=== PATIENT | female | born 1940 | race Two or more races ===

== ENCOUNTER 2019-11-02 11:48 | Emergency (ER) | payer OTHER ==
[2019-11-02 12:03] VITALS: BP 184/62; PULSE 95; TEMP 98.3; BMI 28.3
[2019-11-02] MEDS ORDERED: MECLIZINE HCL 25 MG TABLET (FP) PO ONE (12:25)
[2019-11-02] MEDS ORDERED: MECLIZINE HCL 25 MG TABLET (FP) ONE (12:36)
--- NOTE | 2019-11-02 12:49 | PDOC ---
History of Present Illness - General Chief Complaint: Ear Problem Stated Complaint: DIZZY/FACIAL PAIN/HEADACHE Time Seen by Provider: 11/02/19 12:07 - History of Present Illness Initial Comments: 11/02/19 12:47 79-year-old female with a past medical history of hypertension and hypothyroidism presents for evaluation of dizziness x3 months she describes vertiginous symptoms of the room spinning around as well as right ear pain. She was treated with a oral antibiotic without relief by her doctor who never actually examined her did a telehealth visit and diagnosed her Past History - Medical History Allergies/Adverse Reactions: Allergies Allergy/AdvReac Type Severity Reaction Status Date / Time aspirin Allergy Mild Hives Verified 11/02/19 11:59 Penicillins Allergy Mild Hives Verified 11/02/19 11:59 Home Medications: Ambulatory Orders Phenazopyridine HCl [Pyridium] 200 mg PO TID #5 tablet 12/01/11 Unobtainable Home Med List 0 dose .ROUTE UTDICT 12/01/11 Meclizine HCl [Antivert -] 12.5 mg PO TID #21 tablet 11/02/19 COPD: No GI Disorders: Yes HTN: Yes Thyroid Disease: Yes - Surgical History Cholecystectomy: Yes - Immunization History Immunization Up to Date: No - Psycho-Social/Smoking History Smoking Status: No Smoking History: Never smoked Number of Cigarettes Smoked Daily: 0 - Substance Abuse Hx (Audit-C & DAST Scrn) How often the patient has a drink containing alcohol: Never Score: In Men: 4 or > Positive; In Women: 3 or > Positive: 0 Screen Result (Pos requires Nsg. Audit-10AR): Negative In the last yr the pt used illegal drug/Rx for NonMed reason: No Score: Yes response is considered Positive: 0 Screen Result (Positive result requires Nsg. DAST-10): Negative Review of Systems - Review of Systems Constitutional: No: Fever HEENTM: Yes: Ear Pain Neurological: Yes: Dizziness *Physical Exam - Vital Signs Last Vital Signs Temp Pulse Resp BP Pulse Ox 98.3 F 95 H 20 184/62 H 100 11/02/19 11:59 11/02/19 11:59 11/02/19 11:59 11/02/19 11:59 11/02/19 11:59 - Physical Exam 11/02/19 12:48 GENERAL: The patient is awake, alert, and fully oriented, in no acute distress. HEAD: Normal with no signs of trauma. EYES: sclera anicteric, conjunctiva clear. ENT: Ears normal tympanic membranes normal oropharynx clear uvula midline NECK: Normal range of motion LUNGS: Breath sounds equal, clear to auscultation bilaterally. No wheezes, and no crackles. HEART: S1 and S2 without murmur, rub or gallop. ABDOMEN: Soft, nontender, normoactive bowel sounds. No guarding, no rebound. No masses. EXTREMITIES: Normal range of motion, no edema. No clubbing or cyanosis. No cords, erythema, or tenderness. NEUROLOGICAL: Cranial nerves II through XII grossly intact. PSYCH: Normal mood, normal affect. SKIN: Warm, Dry, normal turgor, no rashes or lesions noted. ED Treatment Course - Medications Given in the ED: ED Medications Discontinued Medications Generic Name Dose Route Start Last Admin Trade Name Freq PRN Reason Stop Dose Admin Meclizine HCl 50 mg 11/02/19 12:25 11/02/19 12:39 Antivert - PO 11/02/19 12:26 50 mg ONCE ONE Administration Medical Decision Making - Medical Decision Making 11/02/19 12:48 Patient's vertiginous symptoms were relieved with meclizine benign examination will have patient follow-up with ENT Meclizine called in I have reviewed the pathophysiology with the patient. They are in agreement with the treatment plan all questions were answered to their satisfaction. Understanding for follow-up without fail was also conveyed to the patient. Again they are in agreement. Discharge - Discharge Information Problems reviewed: Yes Clinical Impression/Diagnosis: Vertigo Condition: Stable Disposition: HOME - Admission No - Additional Discharge Information Prescriptions: Meclizine HCl [Antivert -] 12.5 mg PO TID #21 tablet - Follow up/Referral Referrals: Bobby Mayo MD [Staff Physician] - - Patient Discharge Instructions Additional Instructions: Please take the meclizine as directed and return to the emergency room should symptoms worsen. Without fail follow-up with ear nose and throat doctor in 1 to 2 days for further evaluation and treatment options. - Post Discharge Activity
[2019-11-02] MEDS ORDERED: MAG HYDROX/AL HYDROX/SIMETH 30 ML UNIT-DOSE CUP PO ONE (13:13)
[2019-11-02] MEDS ORDERED: MAG HYDROX/AL HYDROX/SIMETH 30 ML UNIT-DOSE CUP ONE (13:18)
== END 2019-11-02 13:45 | disposition home or self-care (01) ==
LOC: JERFT 11:48
DX: H81.4 Vertigo of central origin (principal)
CPT/HCPCS: 99283-25

== ENCOUNTER 2019-12-25 04:51 | Day surgery (SDC) | payer OTHER ==
[2019-12-24 20:00] VITALS: BMI 30.1
[~2019-12-25 04:51] MED LIST: LIDOCAINE HCL 1%, 10 MG/ML (20ML VIAL) NR ONE
--- OUTSIDE RECORDS SUMMARY | 2019-12-25 05:23 | XMS ---
:1940 Author Organization [facility] Support Name Relationship Address Phone MARTA NEWBERRY DAUGHTER [address] [place] [address] RE Unavailable Unavailable Unavailable SHUKRI NEWBERRY DAUGHTER [address] [place] [address] SHUKRI NEWBERRY Child [address] [place] [place] [address] dhara shin Unavailable [address] [place] [address] Re-disclosure Warning The records that you are about to access may contain information from federally- assisted alcohol or drug abuse programs. If such information is present, then the following federally mandated warning applies: This information has been disclosed to you from records protected by federal confidentiality rules (42 CFR part 2). The federal rules prohibit you from making any further disclosure of this information unless further disclosure is expressly permitted by the written consent of the person to whom it pertains or as otherwise permitted by 42 CFR part 2. A general authorization for the release of medical or other information is NOT sufficient for this purpose. The Federal rules restrict any use of the information to criminally investigate or prosecute any alcohol or drug abuse patient.The records that you are about to access may contain highly sensitive health information, the redisclosure of which is protected by Article 27-F of the [facility] Public Health law. If you continue you may haveaccess to information: Regarding HIV / AIDS; Provided by facilities licensed or operated by the [facility] Office of Mental Health; or Provided by the [facility] Office for People With Developmental Disabilities. If such information is present, then the following [facility] mandated warning applies: This information has been disclosed to you from confidential records which are protected by state law. State law prohibits you from making any further disclosure of this information without the specific written consent of the person to whom it pertains, or as otherwise permitted by law. Any unauthorized further disclosure in violation of state law may result in a fine or fpc sentence or both. A general authorization for the release of medical or other information is NOT sufficient authorization for further disclosure. Allergies and Adverse Reactions Type Description Substance Reaction Status Data Source(s ) Drug allergy Toprol XL Metoprolol nausea/abd Active eCW3 ([facility]) Drug allergy HydrALAZINE HCl Hydralazine cramps Active eCW3 ( [facility]) Propensity to cocconut No known allergies Unknown Active eCW 3 ([facility] adverse (situation) [facility]) Drug allergy Cipro Ciprofloxacin rash Active eCW3 ([facility]) Drug allergy Penicillin Drug allergy Unknown Active eCW3 ([facility]) Drug allergy Aspirin Aspirin Unknown Active eCW3 ([facility]) Drug allergy Lisinopril Lisinopril abd pain, Active eCW3 ([place] diarrhea abd [facility] pain Care) Propensity to pineapple No known allergies Unknown Active eCW 3 ([place] adverse (situation) [facility] reactions Care) Propensity to cocconut No known allergies Unknown Active eCW 3 ([facility] adverse (situation) [facility] reactions [facility]) Drug allergy Penicillin Drug allergy Unknown Active eCW3 ([facility]) Propensity to pineapple No known allergies Unknown Active eCW 3 ([facility] adverse (situation) [facility] reactions [facility]) Propensity to cocconut No known allergies Unknown Active eCW 3 ([facility] adverse (situation) [facility] reactions [facility]) Drug allergy Penicillin Drug allergy Unknown Active eCW3 ([facility]) Propensity to pineapple No known allergies Unknown Active eCW 3 ([facility] adverse (situation) [facility] reactions Care) Propensity to cocconut No known allergies Unknown Active eCW 3 ([place] adverse (situation) [facility] reactions Care) Drug allergy Penicillin Drug allergy Unknown Active eCW3 ([facility]) Propensity to pineapple No known allergies Unknown Active eCW 3 ([place] adverse (situation) [facility] reactions Care) Propensity to cocconut No known allergies Unknown Active eCW 3 ([place] adverse (situation) [facility] reactions Care) Drug allergy Penicillin Drug allergy Unknown Active eCW3 ([facility]) Propensity to pineapple No known allergies Unknown Active eCW 3 ([place] adverse (situation) [facility]) Propensity to cocconut No known allergies Unknown Active eCW 3 ([place] adverse (situation) [facility] reactions Care) Drug allergy Penicillin Drug allergy Unknown Active eCW3 ([facility]) Propensity to pineapple No known allergies Unknown Active eCW 3 ([place] adverse (situation) [facility]) Propensity to cocconut No known allergies Unknown Active eCW 3 ([facility] adverse (situation) [facility] reactions Care) Drug allergy Penicillin Drug allergy Unknown Active eCW3 ([facility]) Propensity to pineapple No known allergies Unknown Active eCW 3 ([place] adverse (situation) [facility] reactions Care) Propensity to cocconut No known allergies Unknown Active eCW 3 ([place] adverse (situation) [facility] reactions Care) Drug allergy Penicillin Drug allergy Unknown Active eCW3 ([facility]) Propensity to pineapple No known allergies Unknown Active eCW 3 ([place] adverse (situation) [facility] reactions Care) Propensity to cocconut No known allergies Unknown Active eCW 3 ([place] adverse (situation) [facility] reactions Care) Drug allergy Penicillin Drug allergy Unknown Active eCW3 ([facility]) Propensity to pineapple No known allergies Unknown Active eCW 3 ([place] adverse (situation) [facility] reactions Care) Propensity to cocconut No known allergies Unknown Active eCW 3 ([place] adverse (situation) [facility] reactions Care) Drug allergy Penicillin Drug allergy Unknown Active eCW3 ([facility]) Propensity to pineapple No known allergies Unknown Active eCW 3 ([place] adverse (situation) [facility] reactions Care) Propensity to cocconut No known allergies Unknown Active eCW 3 ([place] adverse (situation) [facility] reactions Care) Drug allergy Penicillin Drug allergy Unknown Active eCW3 ([facility]) Propensity to pineapple No known allergies Unknown Active eCW 3 ([place] adverse (situation) [facility] reactions Care) Encounters Encounter Providers Location Date Indications Data Source(s ) (ACO) Medicare ACO [facility] 01/13/2019 eC W3 ([facility] A28 12:00:00 AM [facility] - [facility]) 01/13/2019 12:00:00 AM EDT Outpatient [facility] 11/11/2018 eCW3 ([facility] A28 12:00:00 AM [facility] - [facility]) 11/11/2018 12:00:00 AM EDT Outpatient [facility] 10/07/2018 eCW3 ([facility] 12:00:00 AM [facility] - [facility]) 10/07/2018 12:00:00 AM EDT Outpatient [facility] 10/02/2018 eCW3 ([facility]28 12:00:00 AM [facility] - [facility]) 10/02/2018 12:00:00 AM EDT Outpatient [facility] 09/08/2018 eCW3 ([facility] 12:00:00 AM [facility] - [facility]) 09/08/2018 12:00:00 AM EDT Outpatient [facility] 08/12/2018 eCW3 ([facility] 12:00:00 AM [facility] - [facility]) 08/12/2018 12:00:00 AM EDT Outpatient [facility] 07/29/2018 eCW3 ([facility] 12:00:00 AM [facility] - [facility]) 07/29/2018 12:00:00 AM EDT Outpatient [facility] 07/15/2018 eCW3 ([facility] 12:00:00 AM [facility] - [facility]) 07/15/2018 12:00:00 AM EDT Outpatient [facility] 07/01/2018 eCW3 ([facility]28 12:00:00 AM [facility] - [facility]) 07/01/2018 12:00:00 AM EDT Outpatient [facility] 06/23/2018 eCW3 ([facility] 12:00:00 AM [facility] - [facility]) 06/23/2018 12:00:00 AM EDT Outpatient [facility] 06/16/2018 eCW3 ([facility] 12:00:00 AM [facility] - [facility]) 06/16/2018 12:00:00 AM EDT Immunizations Vaccine Date Status Description Data Source(s) New in 2011. IIV4 01/13/2019 completed eCW3 ([facility] [place] 11:18:00 AM EDT Health Care) MMR 10/07/2018 completed eCW3 ([place] [facility] 11:25:00 AM EDT Health Care) MMR 10/07/2018 completed eCW3 ([place] [facility] 11:25:00 AM EDT Health Care) Tdap 10/02/2018 completed eCW3 ([place] [facility] 01:35:00 PM EDT Health Care) Tdap 10/02/2018 completed eCW3 ([place] [facility] 01:35:00 PM EDT Health Care) pneumococcal 06/23/2018 completed eCW3 ([place] [facility] par[facility] polysaccharide PPV23 01:05:00 PM EDT Heal Care) New in 2011. IIV4 06/23/2018 completed eCW3 ([facility] [place] 01:05:00 PM EDT Health Care) pneumococcal 06/23/2018 completed eCW3 ([place] [facility] par[facility] polysaccharide PPV23 01:05:00 PM EDT Heal Care) New in 2011. IIV4 06/23/2018 completed eCW3 ([facility] [place] 01:05:00 PM EDT Health Care) New in 2011. IIV4 03/11/2017 completed eCW3 ([facility] [place] 11:26:00 AM EST Health Care) IIV3. This vaccine code is 12/09/2015 completed e CW3 ([place] one of two which replace 02:17:00 PM EDT Health Care) CVX 15, influenza, split virus. Pneumococcal conjugate PCV 12/09/2015 completed e CW3 ([place] 13 02:17:00 PM EDT Health Care) New in 2011. IIV4 02/10/2015 completed eCW3 ([facility] [place] 10:16:00 AM EST Health Care) IIV3. This vaccine code is 04/07/2014 completed e CW3 ([place] one of two which replace 09:33:00 AM EST Health Care) CVX 15, influenza, split virus. IIV3. This is one of two 12/19/2012 completed eCW 3 ([place] codes replacing CVX 15, 11:58:50 AM EDT [facility]) which is being retired. IIV3. This vaccine code is 12/20/2011 completed e CW3 ([place] one of two which replace 09:53:37 AM EDT Health Care) CVX 15, influenza, split virus. IIV3. This vaccine code is 01/11/2011 completed e CW3 ([place] one of two which replace 01:31:51 PM EDT [facility] Care) CVX 15, influenza, split virus. IIV3. This is one of two 03/08/2010 completed eCW 3 ([place] codes replacing CVX 15, 09:52:39 AM EST [facility]) which is being retired. Medications Medication Brand Start Product Dose Route Administrative Pharmacy [facility] Indications Reaction Description Data Name Date Form Instructions Instructions Source(s) Azithromyci Azithr 10/27/ active Azithro mycin eCW3 n 250 MG omycin 2020 250 MG ([place] Oral Tablet 250 MG 12:00: [place] [facility] 00 AM Health EDT Care) Clotrimazol UNK .0 active Clotrimaz ole eCW3 e 1 % 2020 {appl 1 % ([place] 12:00: icati [place] 00 AM on} Health EDT Care) Clotrimazol UNK 1.0 active Clotrimaz ole eCW3 e 1 % 2020 {appl 1 % ([place] 12:00: icati [place] 00 AM on} Health EDT Care) Clotrimazol UNK .0 active Clotrimaz ole eCW3 e 1 % 2020 {appl 1 % ([place] 12:00: icati [place] 00 AM on} Health EDT Care) Dextrometho Dextro .0 suspend Dextro methor eCW3 rphan methor 2018 {ml_a ed webb-Guaifen ([facility] Hydrobromid webb-G 12:00: s_nee esin 10- 100 [place] e 2 MG/ML / uaifen 00 AM ded} MG/5ML Hea lt Guaifenesin esin [facility] Care) 20 MG/ML 10-100 Oral MG/5ML Solution Dextrometho rphan-Guaif enesin 10-100 MG/5ML Dextrometho Dextro .0 suspend Dextro methor eCW3 rphan methor 2018 {ml_a ed webb-Guaifen ([facility] Hydrobromid webb-G 12:00: s_nee esin 10- 100 [place] e 2 MG/ML / uaifen 00 AM ded} MG/5ML Hea lth Guaifenesin esin EST Care) 20 MG/ML 10-100 Oral MG/5ML Solution Dextrometho rphan-Guaif enesin 10-100 MG/5ML Dextrometho Dextro 02/17/ 10.0 suspend Dextro methor eCW3 rphan methor 2019 {ml_a ed webb-Guaifen ( dson Hydrobromid webb-G 12:00: s_nee esin 10- 100 [place] e 2 MG/ML / uaifen 00 AM ded} MG/5ML Hea lth Guaifenesin esin EST Care) 20 MG/ML 10-100 Oral MG/5ML Solution Dextrometho rphan-Guaif enesin 10-100 MG/5ML Dextrometho Dextro 02/17/ 10.0 suspend Dextro methor eCW3 rphan methor 2019 {ml_a ed webb-Guaifen ( dson Hydrobromid webb-G 12:00: s_nee esin 10- 100 [place] e 2 MG/ML / uaifen 00 AM ded} MG/5ML Hea lth Guaifenesin esin EST Care) 20 MG/ML 10-100 Oral MG/5ML Solution Dextrometho rphan-Guaif enesin 10-100 MG/5ML Dextrometho Dextro 02/17/ 10.0 active Dextrom ethor eCW3 rphan methor 2019 {ml_a webb-Guaifen ( dson Hydrobromid webb-G 12:00: s_nee esin 10- 100 [place] e 2 MG/ML / uaifen 00 AM ded} MG/5ML Hea lth Guaifenesin esin EST Care) 20 MG/ML 10-100 Oral MG/5ML Solution Dextrometho rphan-Guaif enesin 10-100 MG/5ML Dextrometho Dextro 02/17/ 10.0 suspend Dextro methor eCW3 rphan methor 2019 {ml_a ed webb-Guaifen ([place] [facility] Hydrobromid webb-G 12:00: s_nee esin 10- 100 [place] e 2 MG/ML / uaifen 00 AM ded} MG/5ML Hea lth Guaifenesin esin EST Care) 20 MG/ML 10-100 Oral MG/5ML Solution Dextrometho rphan-Guaif enesin 10-100 MG/5ML Dextrometho Dextro .0 suspend Dextro methor eCW3 rphan methor 2019 {ml_a ed webb-Guaifen ([facility] Hydrobromid webb-G 12:00: s_nee esin 10- 100 [place] e 2 MG/ML / uaifen 00 AM ded} MG/5ML [facility] Guaifenesin esin EST Care) 20 MG/ML 10-100 Oral MG/5ML Solution Dextrometho rphan-Guaif enesin 10-100 MG/5ML Dextrometho Dextro .0 suspend Dextro methor eCW3 rphan methor 2019 {ml_a ed webb-Guaifen ([facility] Hydrobromid webb-G 12:00: s_nee esin 10- 100 [place] e 2 MG/ML / uaifen 00 AM ded} MG/5ML [facility] Guaifenesin esin EST Care) 20 MG/ML 10-100 Oral MG/5ML Solution Dextrometho rphan-Guaif enesin 10-100 MG/5ML Blood Blood 05/07/ active Blood eCW3 Pressure Pressu 2019 Pressure Kit ( [place] Kit - re Kit 12:00: - [place] - 00 AM Health EDT Care) Blood Blood /07/ active Blood eCW3 Pressure Pressu 2019 Pressure Kit ( [place] Kit - re Kit 12:00: - [place] - 00 AM Health EDT Care) Blood Blood 05/07/ active Blood eCW3 Pressure Pressu 2019 Pressure Kit ( [place] Kit - re Kit 12:00: - [place] - 00 AM Health EDT Care) Blood Blood 05/07/ active Blood eCW3 Pressure Pressu 2019 Pressure Kit ( [place] Kit - re Kit 12:00: - [place] - 00 AM Health EDT Care) Clonidine Clonid .0 suspend Clonidin e eCW3 Hydrochlori ine 2018 {tabl ed HCl 0.1 MG ( [place] de 0.1 MG HCl 12:00: et_at [place] Oral Tablet 0.1 MG 00 AM _bedt Heal th Clonidine EST anthony} Care) HCl 0.1 MG Hydrocortis Neomyc 4.0 suspend Neomyc in-Marshal eCW3 one 2017 {drop ed ymyxin-HC ([facility] MG/ML / ymyxin 12:00: s_int 3.5-73926-2 [place] Neomycin -HC 00 AM o_aff Health 3.5 MG/ML / 3.5-10 EST ected Care) Polymyxin B 000-1 _ear} 10817 UNT/ML Otic Solution Neomycin-Po lymyxin-HC 3.5-98909-7 Clonidine Clonid .0 suspend Clonidin e eCW3 Hydrochlori ine 2018 {tabl ed HCl 0.1 MG ( [place] de 0.1 MG HCl 12:00: et_at [place] [facility] Tablet 0.1 MG 00 AM _bedt Heal th Clonidine EST anthony} Care) HCl 0.1 MG Clonidine Clonid .0 suspend Clonidin e eCW3 Hydrochlori ine 2018 {tabl ed HCl 0.1 MG ( [place] de 0.1 MG HCl 12:00: et_at [place] [facility] Tablet 0.1 MG 00 AM _bedt Heal th Clonidine EST anthony} Care) HCl 0.1 MG Hydrocortis Neomyc .0 suspend Neomyc in-Marshal eCW3 one 2017 {drop ed ymyxin-HC ([facility] MG/ML / ymyxin 12:00: s_int 3.5-35655-5 [place] Neomycin -HC 00 AM o_aff Health 3.5 MG/ML / 3.5-10 EST ected Care) Polymyxin B 000-1 _ear} 50993 UNT/ML Otic Solution Neomycin-Po lymyxin-HC 3.5-14224-0 Hydrocortis Neomyc .0 suspend Neomyc in-Marshal eCW3 one 2017 {drop ed ymyxin-HC ([facility] MG/ML / ymyxin 12:00: s_int 3.5-45623-8 [place] Neomycin -HC 00 AM o_aff Health 3.5 MG/ML / 3.5-10 EST ected Care) Polymyxin B 000-1 _ear} 28282 UNT/ML Otic Solution Neomycin-Po lymyxin-HC 3.5-65616-7 Hydrocortis Neomyc .0 suspend Neomyc in-Marshal eCW3 one 2017 {drop ed ymyxin-HC ([facility] MG/ML / ymyxin 12:00: s_int 3.5-72173-3 [place] Neomycin -HC 00 AM o_aff Health 3.5 MG/ML / 3.5-10 EST ected Care) Polymyxin B 000-1 _ear} 07741 UNT/ML Otic Solution Neomycin-Po lymyxin-HC 3.5-93695-3 Hydrocortis Neomyc .0 suspend Neomyc in-Marshal eCW3 one 2017 {drop ed ymyxin-HC ([facility] MG/ML / ymyxin 12:00: s_int 3.5-33236-8 [place] Neomycin -HC 00 AM o_aff Health 3.5 MG/ML / 3.5-10 EST ected Care) Polymyxin B 000-1 _ear} 39206 UNT/ML Otic Solution Neomycin-Po lymyxin-HC 3.5-46969-8 Clonidine Clonid .0 suspend Clonidin e eCW3 Hydrochlori ine 2017 {tabl ed HCl 0.1 MG ( [place] de 0.1 MG HCl 12:00: et_at [place] [facility] Tablet 0.1 MG 00 AM _bedt Heal th Clonidine EST anthony} Care) HCl 0.1 MG Clonidine Clonid .0 suspend Clonidin e eCW3 Hydrochlori ine 2017 {tabl ed HCl 0.1 MG ( [place] de 0.1 MG HCl 12:00: et_at [place] [facility] Tablet 0.1 MG 00 AM _bedt Heal th Clonidine EST anthony} Care) HCl 0.1 MG Clonidine Clonid .0 suspend Clonidin e eCW3 Hydrochlori ine 2017 {tabl ed HCl 0.1 MG ( [place] de 0.1 MG HCl 12:00: et_at [place] [facility] Tablet 0.1 MG 00 AM _bedt Heal th Clonidine EST anthony} Care) HCl 0.1 MG Clonidine Clonid .0 suspend Clonidin e eCW3 Hydrochlori ine 2018 {tabl ed HCl 0.1 MG ( [place] de 0.1 MG HCl 12:00: et_at [place] [facility] Tablet 0.1 MG 00 AM _bedt Heal th Clonidine EST anthony} Care) HCl 0.1 MG Clonidine Clonid .0 suspend Clonidin e eCW3 Hydrochlori ine 2018 {tabl ed HCl 0.1 MG ( [place] de 0.1 MG HCl 12:00: et_at [place] [facility] Tablet 0.1 MG 00 AM _bedt Heal th Clonidine EST anthony} Care) HCl 0.1 MG Clonidine Clonid .0 suspend Clonidin e eCW3 Hydrochlori ine 2018 {tabl ed HCl 0.1 MG ( [place] de 0.1 MG HCl 12:00: et_at [place] [facility] Tablet 0.1 MG 00 AM _bedt Heal th Clonidine EST anthony} Care) HCl 0.1 MG Hydrocortis Neomyc .0 suspend Neomyc in-Marshal eCW3 Marshal 2017 {drop ed ymyxin-HC ([facility] MG/ML / ymyxin 12:00: s_int 3.5-19029-8 [place] Neomycin -HC 00 AM o_aff Health 3.5 MG/ML / 3.5-10 EST ected Care) Polymyxin B 000-1 _ear} 60108 UNT/ML Otic Solution Neomycin-Po lymyxin-HC 3.5-68200-4 Clonidine Clonid .0 suspend Clonidin e eCW3 Hydrochlori ine 2018 {tabl ed HCl 0.1 MG ( [place] de 0.1 MG HCl 12:00: et_at [place] [facility] Tablet 0.1 MG 00 AM _bedt Heal th Clonidine EST anthony} Care) HCl 0.1 MG Hydrocortis Neomyc .0 suspend Neomyc in-Marshal eCW3 Marshal 2017 {drop ed ymyxin-HC ([facility] MG/ML / ymyxin 12:00: s_int 3.5-50241-5 [place] Neomycin -HC 00 AM o_aff Health 3.5 MG/ML / 3.5-10 EST ected Care) Polymyxin B 000-1 _ear} 77503 UNT/ML Otic Solution Neomycin-Po lymyxin-HC 3.5-14522-4 Hydrocortis Neomyc 4.0 suspend Neomyc in-Marshal eCW3 one 2018 {drop ed ymyxin-HC ([facility] MG/ML / ymyxin 12:00: s_int 3.5-11971-4 [place] Neomycin -HC 00 AM o_aff Health 3.5 MG/ML / 3.5-10 EST ected Care) Polymyxin B 000-1 _ear} 37815 UNT/ML Otic Solution Neomycin-Po lymyxin-HC 3.5-37559-5 Hydrocortis Neomyc .0 suspend Neomyc in-Marshal eCW3 one 2017 {drop ed ymyxin-HC ([facility] MG/ML / ymyxin 12:00: s_int 3.5-72639-1 [place] Neomycin -HC 00 AM o_aff Health 3.5 MG/ML / 3.5-10 EST ected Care) Polymyxin B 000-1 _ear} 42660 UNT/ML Otic Solution Neomycin-Po lymyxin-HC 3.5-71487-1 Hydrocortis Neomyc .0 suspend Neomyc in-Marshal eCW3 one 2017 {drop ed ymyxin-HC ([facility] MG/ML / ymyxin 12:00: s_int 3.5-16637-3 [place] Neomycin -HC 00 AM o_aff Health 3.5 MG/ML / 3.5-10 EST ected Care) Polymyxin B 000-1 _ear} 62516 UNT/ML Otic Solution Neomycin-Po lymyxin-HC 3.5-03179-9 Clonidine Clonid .0 suspend Clonidin e eCW3 Hydrochlori ine 2018 {tabl ed HCl 0.1 MG ( [place] de 0.1 MG HCl 12:00: et_at [place] Oral Tablet 0.1 MG 00 AM _bedt Heal th Clonidine EST anthony} Care) HCl 0.1 MG Hydrocortis Neomyc .0 suspend Neomyc in-Marshal eCW3 one in2017 {drop ed ymyxin-HC ([facility] MG/ML / ymyxin 12:00: s_int 3.5-99390-0 [place] Neomycin -HC 00 AM o_aff Health 3.5 MG/ML / 3.5-10 EST ected Care) Polymyxin B 000-1 _ear} 98160 UNT/ML Otic Solution Neomycin-Po lymyxin-HC 3.5-87677-4 Benadryl [facility] .0 suspend Benadryl eC W3 12.5 MG/5ML 2017 {ml_a ed 12.5 MG/5ML ([place] 12:00: s_nee [place] 00 AM ded} Health EDT Care) Benadryl UNK .0 suspend Benadryl eC W3 12.5 MG/5ML 2016 {ml_a ed 12.5 MG/5ML ([place] 12:00: s_nee [place] 00 AM ded} Health EDT Care) Benadryl [facility] .0 suspend Benadryl eC W3 12.5 MG/5ML 2016 {ml_a ed 12.5 MG/5ML ([place] 12:00: s_nee [place] 00 AM ded} Health EDT Care) Benadryl [facility] .0 suspend Benadryl eC W3 12.5 MG/5ML 2016 {ml_a ed 12.5 MG/5ML ([place] 12:00: s_nee [place] 00 AM ded} Health EDT Care) Benadryl [facility] .0 suspend Benadryl eC W3 12.5 MG/5ML 2016 {ml_a ed 12.5 MG/5ML ([place] 12:00: s_nee [place] 00 AM ded} Health EDT Care) Benadryl K .0 suspend Benadryl eC W3 12.5 MG/5ML 2016 {ml_a ed 12.5 MG/5ML ([place] 12:00: s_nee [place] 00 AM ded} Health EDT Care) Benadryl [facility] .0 suspend Benadryl eC W3 12.5 MG/5ML 2016 {ml_a ed 12.5 MG/5ML ([place] 12:00: s_nee [place] 00 AM ded} Health EDT Care) Benadryl [facility] .0 suspend Benadryl eC W3 12.5 MG/5ML 2017 {ml_a ed 12.5 MG/5ML ([place] 12:00: s_nee [place] 00 AM ded} Health EDT Care) Benadryl UNK .0 suspend Benadryl eC W3 12.5 MG/5ML 2016 {ml_a ed 12.5 MG/5ML ([place] 12:00: s_nee [place] 00 AM ded} Health EDT Care) Benadryl UNK .0 suspend Benadryl eC W3 12.5 MG/5ML 2016 {ml_a ed 12.5 MG/5ML ([place] 12:00: s_nee [place] 00 AM ded} Health EDT Care) Benadryl UNK .0 suspend Benadryl eC W3 12.5 MG/5ML 2016 {ml_a ed 12.5 MG/5ML ([place] 12:00: s_nee [place] 00 AM ded} Health EDT Care) Estradiol Estrac 09/14/ suspend Estrace 0.1 eCW3 0.1 MG/ML e 0.1 2013 ed MG/GM ([place] Vaginal MG/GM 12:00: [place] Cream 00 AM Health [Estrace] EDT Care) Estrace 0.1 MG/GM Estradiol Estrac 09/14/ suspend Estrace 0.1 eCW3 0.1 MG/ML e 0.1 2013 ed MG/GM ([place] [facility]ag[facility] MG/GM 12:00: [place] Cream 00 AM Health [Estrace] EDT Care) Estrace 0.1 MG/GM Estradiol Estrac 09/14/ suspend Estrace 0.1 eCW3 0.1 MG/ML e 0.1 2013 ed MG/GM ([place] [facility]ag[facility] MG/GM 12:00: [place] Cream 00 AM Health [Estrace] EDT Care) Estrace 0.1 MG/GM Estradiol Estrac 09/14/ suspend Estrace 0.1 eCW3 0.1 MG/ML e 0.1 2013 ed MG/GM ([place] [facility]ag[facility] MG/GM 12:00: [place] Cream 00 AM Health [Estrace] EDT Care) Estrace 0.1 MG/GM Estradiol Estrac 09/14/ suspend Estrace 0.1 eCW3 0.1 MG/ML e 0.1 2013 ed MG/GM ([place] [facility]ag[facility] MG/GM 12:00: [place] Cream 00 AM Health [Estrace] EDT Care) Estrace 0.1 MG/GM Estradiol Estrac 09/14/ suspend Estrace 0.1 eCW3 0.1 MG/ML e 0.1 2013 ed MG/GM ([place] [facility]ag[facility] MG/GM 12:00: [place] Cream 00 AM Health [Estrace] EDT Care) Estrace 0.1 MG/GM Estradiol Estrac 09/14/ suspend Estrace 0.1 eCW3 0.1 MG/ML e 0.1 2013 ed MG/GM ([place] [facility]ag[facility] MG/GM 12:00: [place] Cream 00 AM Health [Estrace] EDT Care) Estrace 0.1 MG/GM Estradiol Estrac 09/14/ suspend Estrace 0.1 eCW3 0.1 MG/ML e 0.1 2013 ed MG/GM ([place] [facility]ag[facility] MG/GM 12:00: [place] Cream 00 AM Health [Estrace] EDT Care) Estrace 0.1 MG/GM Estradiol Estrac 09/14/ suspend Estrace 0.1 eCW3 0.1 MG/ML e 0.1 2013 ed MG/GM ([place] [facility]ag[facility] MG/GM 12:00: [place] Cream 00 AM Health [Estrace] EDT Care) Estrace 0.1 MG/GM Estradiol Estrac 09/14/ suspend Estrace 0.1 eCW3 0.1 MG/ML e 0.1 2013 ed MG/GM ([place] [facility]ag[facility] MG/GM 12:00: [place] Cream 00 AM Health [Estrace] EDT Care) Estrace 0.1 MG/GM Estradiol Estrac 09/14/ suspend Estrace 0.1 eCW3 0.1 MG/ML e 0.1 2013 ed MG/GM ([place] [facility]ag[facility] MG/GM 12:00: [place] Cream 00 AM Health [Estrace] EDT Care) Estrace 0.1 MG/GM Hydrochloro Hydroc 1.0 active Hydrochlo rot eCW3 thiazide 50 hlorot {tabl hiazide 50 ([place] MG Oral hiazid et_in mg [place] Tablet e 50 _the_ Health Hydrochloro mg morni Care) thiazide 50 ng} mg Hydrochloro Hydroc 1.0 active Hydrochlo rot eCW3 thiazide 50 hlorot {tabl hiazide 50 ([place] MG Oral hiazid et_in mg [place] Tablet e 50 _the_ Health Hydrochloro mg morni Care) thiazide 50 ng} mg Blood Blood active Blood eCW3 Pressure Pressu Pressure Kit ( [facility]) Prednisone Predni 1.0 suspend PredniSON E eCW3 20 MG Oral SONE {tabl ed 20 MG ([place] Tablet 20 MG et} [place] [facility] 20 MG Care) Lisinopril Lisino 1.0 suspend Lisinopri l eCW3 20 MG Oral pril {tabl ed 20 MG ([place] Tablet 20 MG et} [facility] Care) Blood Blood active Blood eCW3 Pressure Pressu Pressure Kit ( [facility]) Levothyroxi Levoth active Levothyro rhonda eCW3 ne Sodium yroxin e Sodium 88 ( [place] 0.088 MG e MCG [place] Oral Tablet [facility] Levothyroxi 88 MCG Care) ne Sodium 88 MCG Esomeprazol Nexium 1.0 active Nexium 20 MG eCW3 e 20 MG 20 MG {caps ([place] Delayed ule} [facility] Oral Care) Capsule [Nexium] Nexium 20 MG atorvastati Atorva 1.0 suspend Atorvast atin eCW3 n 20 MG statin {tabl ed Calcium 20 ([facility] [place] Oral Tablet Calciu et} MG [place] Atorvastati 20 Health n Calcium MG Care) 20 MG Blood Blood active Blood eCW3 Pressure Pressu Pressure Kit ( [facility]) Hydrochloro Hydroc 1.0 active Hydrochlo rot eCW3 thiazide 50 hlorot {tabl hiazide 50 ([place] MG Oral hiazid et_in mg [facility] Tablet e 50 _the_ Health Hydrochloro mg morni Care) thiazide 50 ng} mg Levothyroxi Levoth active Levothyro rhonda eCW3 ne Sodium yroxin e Sodium 50 ( [place] 0.05 MG e MCG [facility] Oral Tablet [facility] Levothyroxi 50 MCG Care) ne Sodium 50 MCG Esomeprazol Nexium 1.0 active Nexium 20 MG eCW3 e 20 MG 20 MG {caps ([place] Delayed ule} [facility] Care) Capsule [Nexium] Nexium 20 MG Esomeprazol Nexium 1.0 active Nexium 20 MG eCW3 e 20 MG 20 MG {caps ([place] Delayed ule} [facility] Oral Care) Capsule [Nexium] Nexium 20 MG Lisinopril Lisino 1.0 suspend Lisinopri l eCW3 20 MG Oral pril {tabl ed 20 MG ([place] Tablet 20 MG et} [facility]) Levothyroxi Levoth active Levothyro rhonda eCW3 ne Sodium yroxin e Sodium 50 ( [place] 0.05 MG e MCG [facility] Oral Tablet Sodium [facility] Levothyroxi 50 MCG Care) ne Sodium 50 MCG Levothyroxi Levoth active Levothyro rhonda eCW3 ne Sodium yroxin e Sodium 100 ([place] 0.1 MG Oral e MCG [facility] Tablet Sodium [facility] Levothyroxi 100 Care) ne Sodium MCG 100 MCG Blood Blood active Blood eCW3 Pressure Pressu Pressure Kit ( [place] Kit - re Kit - [facility]) atorvastati Atorva 1.0 suspend Atorvast atin eCW3 n 20 MG statin {tabl ed Calcium 20 ([place] Oral Tablet Calciu et} MG [place] Atorvastati m 20 Health n Calcium MG Care) 20 MG Esomeprazol Nexium 1.0 active Nexium 20 MG eCW3 e 20 MG 20 MG {caps ([place] Delayed ule} [facility] Health Oral Care) Capsule [Nexium] Nexium 20 MG Hydrochloro Hydroc 1.0 active Hydrochlo rot eCW3 thiazide 50 hlorot {tabl hiazide 50 ([place] MG Oral hiazid et_in mg [facility] Tablet e 50 _the_ Health Hydrochloro mg morni Care) thiazide 50 ng} mg Esomeprazol Nexium 1.0 active Nexium 20 MG eCW3 e 20 MG 20 MG {caps ([place] Delayed ule} [facility] Oral Care) Capsule [Nexium] Nexium 20 MG Hydrochloro Hydroc 1.0 active Hydrochlo rot eCW3 thiazide 50 hlorot {tabl hiazide 50 ([place] MG Oral hiazid et_in mg [facility] Tablet e 50 _the_ Health Hydrochloro mg morni Care) thiazide 50 ng} mg Prednisone Predni 1.0 suspend PredniSON E eCW3 20 MG Oral SONE {tabl ed 20 MG ([place] Tablet 20 MG et} [facility] 20 MG Care) Amlodipine Norvas 1.0 active Norvasc 5 MG eCW3 5 MG Oral c 5 MG {tabl ([place] Tablet et} [facility] [Norvasc] Health Norvasc 5 Care) MG atorvastati Atorva 1.0 suspend Atorvast atin eCW3 n 20 MG statin {tabl ed Calcium 20 ([place] Oral Tablet Calciu et} MG [place] Atorvastati 20 Health n Calcium MG Care) 20 MG atorvastati Atorva 1.0 suspend Atorvast atin eCW3 n 20 MG statin {tabl ed Calcium 20 ([place] Oral Tablet Calciu et} MG [place] Atorvastati 20 Health n Calcium MG Care) 20 MG Levothyroxi Levoth active Levothyro rhonda eCW3 ne Sodium yroxin e Sodium 100 ([place] 0.1 MG Oral e MCG [facility] Tablet [facility] Levothyroxi 100 Care) ne Sodium MCG 100 MCG Prednisone Predni 1.0 suspend PredniSON E eCW3 20 MG Oral SONE {tabl ed 20 MG ([place] Tablet 20 MG et} [facility] 20 MG Care) Prednisone Predni 1.0 suspend PredniSON E eCW3 20 MG Oral SONE {tabl ed 20 MG ([place] Tablet 20 MG et} [facility] 20 MG Care) Hydrochloro Hydroc 1.0 active Hydrochlo rot eCW3 thiazide 50 hlorot {tabl hiazide 50 ([place] MG Oral hiazid et_in mg [facility] Tablet e 50 _the_ Health Hydrochloro mg morni Care) thiazide 50 ng} mg atorvastati Atorva 1.0 suspend Atorvast atin eCW3 n 20 MG statin {tabl ed Calcium 20 ([facility] [place] Oral Tablet Calciu et} MG [place] Atorvastati 20 [facility] n Calcium MG Care) 20 MG atorvastati Atorva 1.0 suspend Atorvast atin eCW3 n 20 MG statin {tabl ed Calcium 20 ([place] Oral Tablet Calciu et} MG [place] Atorvastati 20 Health n Calcium MG Care) 20 MG Levothyroxi Levoth active Levothyro rhonda eCW3 ne Sodium yroxin e Sodium 50 ( [place] 0.05 MG e MCG [facility] Oral Tablet [facility] Levothyroxi 50 MCG Care) ne Sodium 50 MCG Lisinopril Lisino 1.0 suspend Lisinopri l eCW3 20 MG Oral pril {tabl ed 20 MG ([place] Tablet 20 MG et} [facility]) Lisinopril Lisino 1.0 suspend Lisinopri l eCW3 20 MG Oral pril {tabl ed 20 MG ([place] Tablet 20 MG et} [facility]) Amlodipine Norvas 1.0 active Norvasc 5 MG eCW3 5 MG Oral c 5 MG {tabl ([place] Tablet et} [facility] 5 [facility]) MG atorvastati Atorva 1.0 suspend Atorvast atin eCW3 n 20 MG statin {tabl ed Calcium 20 (Hu d[place] Oral Tablet Calciu et} MG [place] Atorvastati 20 [facility] n Calcium MG [facility]) 20 MG atorvastati Atorva 1.0 suspend Atorvast atin eCW3 n 20 MG statin {tabl ed Calcium 20 ([place] d[place] Oral Tablet Calciu et} MG [place] Atorvastati [address] n Calcium MG [facility]) 20 MG Claritin 5 Clarit 10.0 active Claritin 5 eCW3 MG/5ML in 5 {ml} MG/5ML ([place] MG/5ML [facility]) Hydrochloro Hydroc 1.0 active Hydrochlo rot eCW3 thiazide 50 hlorot {tabl hiazide 50 ([place] MG Oral hiazid et_in mg [facility] Tablet e 50 _the_ Health Hydrochloro mg morni Care) thiazide 50 ng} mg Prednisone Predni 1.0 suspend PredniSON E eCW3 20 MG Oral SONE {tabl ed 20 MG ([place] Tablet 20 MG et} [place] [facility] 20 MG Care) Prednisone Predni 1.0 suspend PredniSON E eCW3 20 MG Oral SONE {tabl ed 20 MG ([place] Tablet 20 MG et} [place] [facility] 20 MG Care) Amlodipine Norvas 1.0 active Norvasc 5 MG eCW3 5 MG Oral c 5 MG {tabl ([place] Tablet et} [place] [facility] MG Hydrochloro Hydroc 1.0 active Hydrochlo rot eCW3 thiazide 50 hlorot {tabl hiazide 50 ([place] MG Oral hiazid et_in mg [facility] Tablet e 50 _the_ Health Hydrochloro mg morni Care) thiazide 50 ng} mg Claritin 5 Clarit 10.0 active Claritin 5 eCW3 MG/5ML in 5 {ml} MG/5ML ([place] MG/5ML [facility]) Amlodipine Norvas 1.0 active Norvasc 5 MG eCW3 5 MG Oral c 5 MG {tabl ([place] Tablet et} [place] [[address]) MG atorvastati Atorva 1.0 suspend Atorvast atin eCW3 n 20 MG statin {tabl ed Calcium 20 (Hu d[place] Oral Tablet Calciu et} MG [place] Atorvastati 20 Health n Calcium Care) 20 MG Claritin 5 Clarit 10.0 active Claritin 5 eCW3 MG/5ML in 5 {ml} MG/5ML ([place] MG/5ML [facility]) Levothyroxi Levoth active Levothyro rhonda eCW3 ne Sodium yroxin e Sodium 100 ([place] 0.1 MG Oral e MCG [place] Tablet [facility] Levothyroxi 100 Care) ne Sodium MCG 100 MCG Amlodipine Norvas 1.0 active Norvasc 5 MG eCW3 5 MG Oral c 5 MG {tabl ([place] Tablet et} [facility] 5 [facility]) MG Hydrochloro Hydroc 1.0 active Hydrochlo rot eCW3 thiazide 50 hlorot {tabl hiazide 50 ([place] MG Oral hiazid et_in mg [facility] Tablet e 50 _the_ Health Hydrochloro mg morni Care) thiazide 50 ng} mg Hydrochloro Hydroc 1.0 active Hydrochlo rot eCW3 thiazide 50 hlorot {tabl hiazide 50 ([place] MG Oral hiazid et_in mg [facility] Tablet e 50 _the_ Health Hydrochloro mg morni Care) thiazide 50 ng} mg Blood Blood active Blood eCW3 Pressure Pressu Pressure Kit ( [place] Kit - re Kit - [facility]) Levothyroxi Levoth active Levothyro rhonda eCW3 ne Sodium yroxin e Sodium 88 ( [place] 0.088 MG e MCG [facility] Oral Tablet [facility] Levothyroxi 88 MCG Care) ne Sodium 88 MCG Claritin 5 Clarit 10.0 active Claritin 5 eCW3 MG/5ML in 5 {ml} MG/5ML ([place] MG/5ML [place] [facility]) atorvastati Atorva 1.0 suspend Atorvast atin eCW3 n 20 MG statin {tabl ed Calcium 20 ([place] Oral Tablet Calciu et} MG [place] Atorvastati m 20 Health n Calcium MG Care) 20 MG Claritin 5 Clarit 10.0 active Claritin 5 eCW3 MG/5ML in 5 {ml} MG/5ML ([place] MG/5ML [facility]) Esomeprazol Nexium 1.0 active Nexium 20 MG eCW3 e 20 MG 20 MG {caps ([place] Delayed ule} [facility]) Capsule [Nexium] Nexium 20 MG Hydrochloro Hydroc 1.0 active Hydrochlo rot eCW3 thiazide 50 hlorot {tabl hiazide 50 ([place] MG Oral hiazid et_in mg [facility] Tablet e 50 _the_ Health Hydrochloro mg morni Care) thiazide 50 ng} mg Levothyroxi Levoth active Levothyro rhonda eCW3 ne Sodium yroxin e Sodium 88 ( [place] 0.088 MG e MCG [facility] Tablet [facility] Levothyroxi 88 MCG Care) ne Sodium 88 MCG Claritin 5 Clarit 10.0 active Claritin 5 eCW3 MG/5ML in 5 {ml} MG/5ML ([place] MG/5ML [place] [facility]) Prednisone Predni 1.0 suspend PredniSON E eCW3 20 MG Oral SONE {tabl ed 20 MG ([place] Tablet 20 MG et} [facility] 20 MG Care) Amlodipine Norvas 1.0 active Norvasc 5 MG eCW3 5 MG Oral c 5 MG {tabl ([place] Tablet et} [facility] [Norvasc] Health Norvasc 5 Care) MG Claritin 5 Clarit 10.0 active Claritin 5 eCW3 MG/5ML in 5 {ml} MG/5ML ([place] MG/5ML [facility]) Esomeprazol Nexium 1.0 active Nexium 20 MG eCW3 e 20 MG 20 MG {caps ([place] Delayed ule} [facility]) Capsule [Nexium] Nexium 20 MG Esomeprazol Nexium 1.0 active Nexium 20 MG eCW3 e 20 MG 20 MG {caps ([place] Delayed ule} [facility]) Capsule [Nexium] Nexium 20 MG Levothyroxi Levoth active Levothyro rhonda eCW3 ne Sodium yroxin e Sodium 50 ( [place] 0.05 MG e MCG [facility] Oral Tablet [facility] Levothyroxi 50 MCG Care) ne Sodium 50 MCG Claritin 5 Clarit 10.0 active Claritin 5 eCW3 MG/5ML in 5 {ml} MG/5ML ([place] MG/5ML [place] [facility]) Blood Blood active Blood eCW3 Pressure Pressu Pressure Kit ( [place] Kit - re Kit - [facility]) Esomeprazol Nexium 1.0 active Nexium 20 MG eCW3 e 20 MG 20 MG {caps ([place] Delayed ule} [facility]) Capsule [Nexium] Nexium 20 MG Claritin 5 Clarit 10.0 active Claritin 5 eCW3 MG/5ML in 5 {ml} MG/5ML ([place] MG/5ML [facility]) Amlodipine Norvas 1.0 active Norvasc 5 MG eCW3 5 MG Oral c 5 MG {tabl ([place] Tablet et} [facility] 5 [facility]) MG Amlodipine Norvas 1.0 active Norvasc 5 MG eCW3 5 MG Oral c 5 MG {tabl ([place] [facility]} [facility] MG Prednisone Predni 1.0 suspend PredniSON E eCW3 20 MG Oral SONE {tabl ed 20 MG ([place] Tablet 20 MG et} [place] [facility] 20 MG Care) Claritin 5 Clarit 10.0 active Claritin 5 eCW3 MG/5ML in 5 {ml} MG/5ML ([place] MG/5ML [place] [facility]) Amlodipine Norvas 1.0 active Norvasc 5 MG eCW3 5 MG Oral c 5 MG {tabl ([place] Tablet et} [place] [facility] 5 [facility]) MG Claritin 5 Clarit 10.0 active Claritin 5 eCW3 MG/5ML in 5 {ml} MG/5ML ([place] MG/5ML [facility]) Prednisone Predni 1.0 suspend PredniSON E eCW3 20 MG Oral SONE {tabl ed 20 MG ([place] Tablet 20 MG et} [facility] 20 MG Care) Esomeprazol Nexium 1.0 active Nexium 20 MG eCW3 e 20 MG 20 MG {caps ([place] Delayed ule} [facility]) Capsule [Nexium] Nexium 20 MG Amlodipine Norvas 1.0 active Norvasc 5 MG eCW3 5 MG Oral c 5 MG {tabl ([place] Tablet et} [facility] [Norvasc] [facility] Norvasc 5 Care) MG atorvastati Atorva 1.0 suspend Atorvast atin eCW3 n 20 MG statin {tabl ed Calcium 20 ([facility] d[place] Oral Tablet Calciu et} MG [place] Atorvastati m 20 Health n Calcium MG Care) 20 MG Blood Blood active Blood eCW3 Pressure Pressu Pressure Kit ( [place] Kit - re Kit - [facility]) Prednisone Predni 1.0 suspend PredniSON E eCW3 20 MG Oral SONE {tabl ed 20 MG ([place] Tablet 20 MG et} [facility] 20 MG Care) Esomeprazol Nexium 1.0 active Nexium 20 MG eCW3 e 20 MG 20 MG {caps ([place] Delayed ule} [facility]) Capsule [Nexium] Nexium 20 MG Levothyroxi Levoth active Levothyro rhonda eCW3 ne Sodium yroxin e Sodium 100 ([place] 0.1 MG Oral e MCG [facility] Tablet [facility] Levothyroxi 100 Care) ne Sodium MCG 100 MCG Prednisone Predni 1.0 suspend PredniSON E eCW3 20 MG Oral SONE {tabl ed 20 MG ([place] Tablet 20 MG et} [facility] 20 MG Care) Amlodipine Norvas 1.0 active Norvasc 5 MG eCW3 5 MG Oral c 5 MG {tabl ([place] Tablet et} [facility] [Norvasc] [facility] Norvasc 5 Care) MG Insurance Providers Payer name Policy type Policy ID Covered Covered alliance party's Policy P janette / Coverage alliance party ID relationship to Peña Inf ormation type peña MEDICARE [id number] MEDICAID [id number] MEDICARE [id number] A Problems, Conditions, and Diagnoses Code Display Name Description Problem Type Effective Data Dates Source(s) Z78.9 Patient has Patient has Problem 01/13/2019 eCW3 ([place] [facility] proxy healthcare proxy 12:00:00 AM [facility] EDT Care) 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 Problem 10/27/2018 eCW3 ([place] kidney kidney 12:00:00 AM [place] [facility] EDT Care) 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 Problem 10/27/2018 eCW3 ([place] kidney kidney 12:00:00 AM [place] [facility] EDT Care) E78.5 Hyperlipidemia, Hyperlipidemia, Problem 06/23/2018 eCW3 ([place] unspecified unspecified 12:00:00 AM [facility] hyperlipidemia type hyperlipidemia type EDT Care) E78.5 Hyperlipidemia, Hyperlipidemia, Problem 06/23/2018 eCW3 ([place] unspecified unspecified 12:00:00 AM [facility] hyperlipidemia type hyperlipidemia type EDT Care) N18.3 Chronic kidney Chronic kidney Problem 06/19/2018 eCW3 ( [place] disease, stage 3 disease, stage 3 12:00:00 AM [facility] EDT Care) N18.3 Chronic kidney Chronic kidney Problem 06/19/2018 eCW3 ( [place] disease, stage 3 disease, stage 3 12:00:00 AM [facility] EDT Care) E03.9 Hypothyroid Hypothyroid Problem 02/07/2018 eCW3 ([place] 12:00:00 AM [place] [facility] EST Care) E03.9 Hypothyroid Hypothyroid Problem 02/07/2018 eCW3 ([place] 12:00:00 AM [place] [facility] EST Care) J30.2 Seasonal allergies Seasonal allergies Problem 8 eCW3 ([place] 12:00:00 AM [place] [facility] EDT Care) F41.8 Anxiety about Anxiety about Problem 09/03/2017 eCW3 ([facility] 12:00:00 AM [place] [facility] EDT Care) K29.00 Other acute Other acute Problem 04/11/2017 eCW3 ([place] gastritis without gastritis without 12:00:00 AM [facility] hemorrhage hemorrhage EST Care) M54.32 Sciatica of left Sciatica of left Problem 03/07/2017 eC W3 ([place] side side 12:00:00 AM [facility] EST Care) H26.8 Other cataract of Other cataract of Problem 03/07/2017 eCW3 ([place] both eyes both eyes 12:00:00 AM [facility] EST Care) G44.209 Acute non Acute non Problem 03/07/2017 eCW3 ([place] intractable intractable 12:00:00 AM [facility] tension-type tension-type EST Care) headache headache R20.0 Left leg numbness Left leg numbness Problem 03/07/2017 eCW3 ([place] 12:00:00 AM [facility] EST Care) H26.8 Other cataract of Other cataract of Problem 03/07/2017 eCW3 ([place] both eyes both eyes 12:00:00 AM [facility] EST Care) M54.32 Sciatica of left Sciatica of left Problem 03/07/2017 eC W3 ([place] side side 12:00:00 AM [facility] EST Care) I10 Uncontrolled Uncontrolled Problem 03/04/2017 eCW3 ([place] hypertension hypertension 12:00:00 AM [facility] EST Care) I10 Essential Essential (primary) Problem 03/04/2017 eCW3 ([place] hypertension hypertension 12:00:00 AM [facility] EST Care) I10 Essential Essential (primary) Problem 03/04/2017 eCW3 ([place] hypertension hypertension 12:00:00 AM [facility] EST Care) I10 Uncontrolled Uncontrolled Problem 03/04/2017 eCW3 ([place] hypertension hypertension 12:00:00 AM [facility] EST Care) K21.0 Gastro-esophageal Gastro-esophageal Problem 12/10/2016 eCW3 ([place] reflux disease with reflux disease with 12:00:0 0 AM [facility] esophagitis esophagitis EDT Care) K21.0 Gastro-esophageal Gastro-esophageal Problem 12/10/2016 eCW3 ([place] reflux disease with reflux disease with 12:00:0 0 AM [facility] esophagitis esophagitis EDT Care) G89.29 Other chronic pain Other chronic pain Problem 7 eCW3 ([place] 12:00:00 AM [facility] EDT Care) G89.29 Other chronic pain Other chronic pain Problem 7 eCW3 ([place] 12:00:00 AM [facility] EDT Care) R73.09 Prediabetes Prediabetes Problem 12/09/2015 eCW3 ([place] 12:00:00 [facility]) R73.09 Prediabetes Prediabetes Problem 12/09/2015 eCW3 ([place] 12:00:00 [facility]) Social History Code Duration Value Status Description Data Source(s ) Smoking 10/28/2019 12:00:00 Never Smoker completed Never Smoker e CW3 ([facility]) Smoking 08/11/2019 12:00:00 Never Smoker completed Never Smoker e CW3 ([facility]) Smoking 08/11/2019 12:00:00 Never Smoker completed Never Smoker e CW3 ([facility]) Smoking 08/11/2019 12:00:00 Never Smoker completed Never Smoker e CW3 ([facility]) Smoking 06/25/2019 12:00:00 Never Smoker completed Never Smoker e CW3 ([facility]) Smoking 06/25/2019 12:00:00 Never Smoker completed Never Smoker e CW3 ([facility]) Smoking 06/22/2019 12:00:00 Never Smoker completed Never Smoker e CW3 ([facility]) Smoking 02/17/2019 12:00:00 Never Smoker completed Never Smoker e CW3 ([facility]) Smoking 01/14/2019 12:00:00 Never Smoker completed Never Smoker e CW3 ([facility]) Smoking 11/11/2018 12:00:00 Never Smoker completed Never Smoker e CW3 ([facility]) Smoking 11/11/2018 12:00:00 Never Smoker completed Never Smoker e CW3 ([facility]) Never Smoker completed Never Smoker eCW3 ([facility]) Never Smoker completed Never Smoker eCW3 ([facility]) Never Smoker completed Never Smoker eCW3 ([facility]) Never Smoker completed Never Smoker eCW3 ([facility]) Never Smoker completed Never Smoker eCW3 ([facility]) Never Smoker completed Never Smoker eCW3 ([facility]) Never Smoker completed Never Smoker eCW3 ([facility] [place] [facility]) Never Smoker completed Never Smoker eCW3 ([facility] [place] [facility]) Never Smoker completed Never Smoker eCW3 ([facility] [place] [facility]) Never Smoker completed Never Smoker eCW3 ([facility] [place] [facility]) Never Smoker completed Never Smoker eCW3 ([facility] [place] [facility]) Vital Signs ID Date Data Source UNK Name Value Range Interpretation Code Description Data Source(s) Diastolic blood 70 mm[Hg] 70 mm[Hg] eCW3 ([facility]) Systolic blood 138 mm[Hg] 138 mm[Hg] eCW3 ([facility]) Body temperature 97.7 [degF] 97.7 [degF] eCW3 ( [facility]) Body mass index 31.09 kg/m2 31.09 kg/m2 eCW3 ([facility] (BMI) [Ratio] [facility]) Body weight 170 [lb_av] 170 [lb_av] eCW3 ([facility]) Body height 62 [in_i] 62 [in_i] eCW3 ([facility]) Diastolic blood 67 mm[Hg] 67 mm[Hg] eCW3 ([facility]) Systolic blood 169 mm[Hg] 169 mm[Hg] eCW3 ([facility]) Body temperature 98.2 [degF] 98.2 [degF] eCW3 ( [facility]) Body mass index 31.64 kg/m2 31.64 kg/m2 eCW3 ([facility] el[facility] (BMI) [Ratio] [facility]) Body weight 173 [lb_av] 173 [lb_av] eCW3 ([facility]) Body height 62 [in_i] 62 [in_i] eCW3 ([facility]) Diastolic blood 80 mm[Hg] 80 mm[Hg] eCW3 ([facility]) Systolic blood 165 mm[Hg] 165 mm[Hg] eCW3 ([facility]) Body temperature 98.1 [degF] 98.1 [degF] eCW3 ( [facility]) Body mass index 32.19 kg/m2 32.19 kg/m2 eCW3 ([facility] ud[facility] (BMI) [Ratio] [facility]) Body weight 176 [lb_av] 176 [lb_av] eCW3 ([facility]) Body height 62 [in_i] 62 [in_i] eCW3 ([facility]) Diastolic blood 73 mm[Hg] 73 mm[Hg] eCW3 ([facility]) Systolic blood 182 mm[Hg] 182 mm[Hg] eCW3 ([facility] on [facility]) Body temperature 98.0 [degF] 98.0 [degF] eCW3 ( [facility]) Body mass index 32.30 kg/m2 32.30 kg/m2 eCW3 (H udson (BMI) [Ratio] [facility]) Body weight 176.6 176.6 [lb_av] eCW3 ([facility] on [lb_av] [facility]) Body height 62 [in_i] 62 [in_i] eCW3 ([facility]) Diastolic blood 74 mm[Hg] 74 mm[Hg] eCW3 ([facility]) Systolic blood 166 mm[Hg] 166 mm[Hg] eCW3 ([facility] on [facility]) Body temperature 98.0 [degF] 98.0 [degF] eCW3 ( [facility]) Body mass index 32.19 kg/m2 32.19 kg/m2 eCW3 (H udson (BMI) [Ratio] [facility]) Body weight 176 [lb_av] 176 [lb_av] eCW3 ([facility]) Body height 62 [in_i] 62 [in_i] eCW3 ([facility]) Diastolic blood 64 mm[Hg] 64 mm[Hg] eCW3 ([facility]) Systolic blood 156 mm[Hg] 156 mm[Hg] eCW3 ([facility] on [facility]) Body temperature 98.0 [degF] 98.0 [degF] eCW3 ( [facility]) Body mass index 32.19 kg/m2 32.19 kg/m2 eCW3 ([facility] ud[facility] (BMI) [Ratio] [facility]) Body weight 176 [lb_av] 176 [lb_av] eCW3 ([facility]) Body height 62 [in_i] 62 [in_i] eCW3 ([facility]) Diastolic blood 69 mm[Hg] 69 mm[Hg] eCW3 ([facility]) Systolic blood 183 mm[Hg] 183 mm[Hg] eCW3 ([facility]) Body temperature 97.8 [degF] 97.8 [degF] eCW3 ( [facility]) Body mass index 32.00 kg/m2 32.00 kg/m2 eCW3 ([facility] (BMI) [Ratio] [facility]) Body weight 175 [lb_av] 175 [lb_av] eCW3 ([facility]) Body height 62 [in_i] 62 [in_i] eCW3 ([facility]) Diastolic blood 64 mm[Hg] 64 mm[Hg] eCW3 ([facility]) Systolic blood 168 mm[Hg] 168 mm[Hg] eCW3 ([facility]) Body temperature 98.0 [degF] 98.0 [degF] eCW3 ( [facility]) Body mass index 32.19 kg/m2 32.19 kg/m2 eCW3 ([facility] (BMI) [Ratio] [facility]) Body weight 176 [lb_av] 176 [lb_av] eCW3 ([facility]) Body height 62 [in_i] 62 [in_i] eCW3 ([facility]) Diastolic blood 67 mm[Hg] 67 mm[Hg] eCW3 ([facility]) Systolic blood 157 mm[Hg] 157 mm[Hg] eCW3 ([facility]) Body temperature 97.4 [degF] 97.4 [degF] eCW3 ( [facility]) Body mass index 32.19 kg/m2 32.19 kg/m2 eCW3 ([facility] (BMI) [Ratio] [facility]) Body weight 176 [lb_av] 176 [lb_av] eCW3 ([facility]) Body height 62 [in_i] 62 [in_i] eCW3 ([facility]) Diastolic blood 67 mm[Hg] 67 mm[Hg] eCW3 ([facility]) Systolic blood 178 mm[Hg] 178 mm[Hg] eCW3 ([facility]) Body temperature 98.0 [degF] 98.0 [degF] eCW3 ( [facility]) Body mass index 31.82 kg/m2 31.82 kg/m2 eCW3 ([facility] (BMI) [Ratio] [facility]) Body weight 174 [lb_av] 174 [lb_av] eCW3 ([facility]) Body height 62 [in_i] 62 [in_i] eCW3 ([facility]) Diastolic blood 67 mm[Hg] 67 mm[Hg] eCW3 ([facility]) Systolic blood 181 mm[Hg] 181 mm[Hg] eCW3 ([facility]) Body temperature 97.7 [degF] 97.7 [degF] eCW3 ( [facility]) Body mass index 32.37 kg/m2 32.37 kg/m2 eCW3 (H elo (BMI) [Ratio] [facility]) Body weight 177 [lb_av] 177 [lb_av] eCW3 ([facility]) Body height 62 [in_i] 62 [in_i] eCW3 ([facility]) Patient Treatment Plan of Care Planned Activity Planned Date Details Description Data Source (s) Azithromycin 250 MG Oral 10/28/2019 eCW 3 ([place] Tablet 12:00:00 AM [facility]) Clotrimazole 1 % 08/11/2019 eCW3 ([facility] [place] 12:[place]:00 AM [facility]) Clotrimazole 1 % 08/11/2019 eCW3 ([facility] [place] 12:00:00 AM [facility]) Clotrimazole 1 % 08/11/2019 eCW3 ([facility] [place] 12:00:00 AM [facility]) Dextromethorphan Hydrobromide 02/17/2019 eCW3 ([place] 2 MG/ML / Guaifenesin 20 12:00:00 AM [facility]) MG/ML Oral Solution Levothyroxine Sodium 0.1 MG eCW3 ([facility] Oral Tablet [facility]) Amlodipine 5 MG Oral Tablet eCW3 ([facility]) Blood Pressure Kit - eCW3 ([facility]) Hydrochlorothiazide 50 MG eC W3 ([facility] Oral Tablet [facility]) Levothyroxine Sodium 0.1 MG eCW3 ([facility] Oral Tablet [facility]) Amlodipine 5 MG Oral Tablet eCW3 ([facility]) Blood Pressure Kit - eCW3 ([facility]) Hydrochlorothiazide 50 MG eC W3 ([facility] Oral Tablet [facility]) Levothyroxine Sodium 0.1 MG eCW3 ([facility] Tablet [facility]) Amlodipine 5 MG Oral Tablet eCW3 ([facility]) Blood Pressure Kit - eCW3 ([facility]) Hydrochlorothiazide 50 MG eC W3 ([facility] Oral Tablet [facility]) Blood Pressure Kit - eCW3 ([facility]) Hydrochlorothiazide 50 MG eC W3 ([facility] Oral Tablet [facility]) Amlodipine 5 MG Oral Tablet eCW3 ([facility]) Blood Pressure Kit - eCW3 ([facility]) Hydrochlorothiazide 50 MG eC W3 ([facility] Oral Tablet [facility]) Amlodipine 5 MG Oral Tablet eCW3 ([facility]) Hydrochlorothiazide 50 MG eC W3 ([facility] Oral Tablet [facility]) Blood Pressure Kit - eCW3 ([facility]) Levothyroxine Sodium 0.088 MG eCW3 ([facility] Oral Tablet [facility]) Amlodipine 5 MG Oral Tablet eCW3 ([facility]) Amlodipine 5 MG Oral Tablet eCW3 ([facility]) Hydrochlorothiazide 50 MG eC W3 ([facility] Oral Tablet [facility]) Amlodipine 5 MG Oral Tablet eCW3 ([facility]) Hydrochlorothiazide 50 MG eC W3 ([facility] Oral Tablet [facility]) Levothyroxine Sodium 0.05 MG eCW3 ([facility]) Amlodipine 5 MG Oral Tablet eCW3 ([facility]) Hydrochlorothiazide 50 MG eC W3 ([facility] Oral Tablet [facility]) Amlodipine 5 MG Oral Tablet eCW3 ([facility]) Hydrochlorothiazide 50 MG eC W3 ([facility] Oral Tablet [facility])
[2019-12-25] MEDS ORDERED: LIDOCAINE HCL 1%, 10 MG/ML (20ML VIAL) ONE (13:01)
[2019-12-25 13:02] LABS: ALBUMIN 3.7 g/dl (3.4-5.0); BILIRUBIN,TOTAL 0.3 mg/dL (0.2-1); BLOOD UREA NITROGEN 47.4 mg/dL (7-18); CALCIUM 9.1 mg/dL (8.5-10.1); CREATININE 1.5 mg/dL (0.55-1.3); POTASSIUM 4.8 mmol/L (3.5-5.1); TOT PROT 7.9 g/dl (6.4-8.2)
--- NOTE | 2019-12-25 14:07 | HP ---
Satellite [facility] - Chief Complaint Chief Complaint: Headache History of Present Illness: 79 year old woman with 4 month of right sided headache and jaw pain. ESR 55. History Source: Patient - Past Medical History Allergies/Adverse Reactions: Allergies Allergy/AdvReac Type Severity Reaction Status Date / Time aspirin Allergy Mild Hives Verified 11/02/19 11:59 Penicillins Allergy Mild Hives Verified 11/02/19 11:59 Cardiovascular: Yes: HTN, Hyperlipdemia - Current Medications Current Medications: Home Medications Medication Instructions Recorded Amlodipine Besylate [Norvasc -] 10 mg PO DAILY 12/24/19 Baclofen 10 mg PO DAILY 12/24/19 Esomeprazole Magnesium [Nexium 20 mg PO DAILY 12/24/19 24Hr] Levothyroxine [Synthroid -] 75 mcg PO DAILY 12/24/19 Lisinopril [Zestril] 10 mg PO DAILY 12/24/19 Nebivolol [Bystolic -] 5 mg PO DAILY 12/24/19 Prednisone 60 mg PO DAILY 12/24/19 Satellite Physical Exam - Physical Examination Vital Signs: Vital Signs Period Temp Pulse Resp BP Sys/Palma Pulse Ox Last 24 Hr 97.3 F-97.3 F 60-60 20-20 141-141/88-88 99-99 General Appearance: Well Nourished, Well Developed, Alert & Oriented x3 ENT: Clear, No Discharge Lung: Clear to auscultation Heart: Regular rate & rhythm Abdomen: Soft Extremities: No edema Neurological: Intact, Alert, Oriented Satellite Impression/Plan - Impression/Plan Impression: R/o temporal arteritis Operative Procedure: Temporal artery biopsy Date to be Performed: 12/25/19
[2019-12-25] MEDS ORDERED: PROPOFOL 20 ML ONE (14:12)
[2019-12-25] MEDS ORDERED: MIDAZOLAM HCL 2 MG/2 ML SINGLE DOSE VIAL ONE ×2 (14:12)
[2019-12-25] MEDS ORDERED: LIDOCAINE HCL/PF 2% SDV 5ML VIAL ONE (14:41)
--- NOTE | 2019-12-25 15:14 | OP ---
Operative Note - Note: Operative Date: 12/25/19 Pre-Operative Diagnosis: R/o temporal arteritis Operation: Biopsy right temproal artery Findings: Normal appearing artery Post-Operative Diagnosis: Same as Pre-op Surgeon: Fabian Greene Anesthesiologist/WINDOWS SERVER ARCHITECT: Shant Christian Anesthesia: MAC Specimens Removed: right temporal artery Estimated Blood Loss (mls): 5
[2019-12-25 16:34] VITALS: BP 134/61; PULSE 60; TEMP 97.6
--- NOTE | 2019-12-26 21:28 | OP ---
DATE OF OPERATION: 12/25/2019 SURGEON: Fabian Mcneill MD PROCEDURE: Biopsy, right temporal artery. PREOPERATIVE DIAGNOSIS: Rule out temporal arteritis. POSTOPERATIVE DIAGNOSIS: Rule out temporal arteritis. ANESTHESIA: Fractional. ANESTHESIOLOGIST: JAZIEL Barron OPERATIVE FINDINGS: The right superficial temporal artery appeared normal. OPERATIVE PROCEDURE: Following routine patient identification with site and side verification, intravenous sedation was established. The skin of the right yazidi was prepped with ChloraPrep. Timeout was performed. Next, 1% lidocaine was infiltrated over the pulse in the right superficial temporal artery. A 2-cm incision was made over the vessel and carried into the subcutaneous tissues using cautery for hemostasis. The artery was mobilized from the surrounding tissues with sharp dissection. Side branches were ligated and divided. The artery was ligated proximally and distally, and a 2-cm section removed and sent to Pathology. The wound was close with subcutaneous suture of 4-0 Vicryl and running subcuticular suture of 4-0 Biosyn on the skin. Dermabond glue was applied as a dressing. Patient was taken to the ambulatory surgery unit in stable condition. FABIAN MCNEILL M.D. [id number]
--- NOTE | 2019-12-29 11:36 | PATH ---
Surgical Pathology Report Patient Name: SHANAE SHIN Med. Rec. #: [id number] /Age/Gender: 1940 (Age: 79) / F Account: [id number] Location: [facility] SURGICAL Taken: 12/25/2019 Received: 12/28/2019 Reported: 12/29/2019 Physicians: Fabian Greene M.D. Specimen(s) Received TEMPORAL ARTERY, RIGHT Clinical History Headache right sided headaches x4 weeks Final Diagnosis TEMPORAL ARTERY, RIGHT, BIOPSY: MUSCULAR ARTERY WITH NO EVIDENCE OF ARTERITIS. MULTIPLE LEVELS EXAMINED. Electronically Signed Bianca Ortega M.D. Gross Description Received in formalin labeled "right temporal artery," is a 1.9 cm in length by 0.1 cm in diameter ceballos, tubular structure, consistent with a temporal artery biopsy. The specimen is sectioned and entirely submitted in one cassette. /12/28/2019 saudi/12/28/2019
== END 2019-12-25 16:00 | disposition home or self-care (01) ==
LOC: JASU-SURG 04:51
PROVIDERS: ATTEND Surgery
PROC: 03BS3ZX Excision of Right Temporal Artery, Percutaneous Approach, Diagnostic (ICD-10-PCS; principal; 2019-12-25 14:00)
DX: M31.6 Other giant cell arteritis (principal)
CPT/HCPCS: 36415; 80053; 88305-TC

== ENCOUNTER 2020-04-14 18:11 | Inpatient (IN) | payer OTHER ==
[2020-04-14 18:23] VITALS: BMI 30.9
[2020-04-14] MEDS ORDERED: ACETAMINOPHEN 1000 MG/100 ML VIAL (NON FORMULARY) IVPB ONE (19:02)
[2020-04-14] MEDS ORDERED: LACTATED RINGERS SOLUTION 1000 ML INFUS.BAG IV ONE (19:02)
[2020-04-14] MEDS ORDERED: METOCLOPRAMIDE HCL INJECTION 10 MG/2 ML VIAL IVPUSH ONE (19:02)
[2020-04-14 20:31] LABS: BASO % 0.2 % (0-2.0); HEMATOCRIT 37.5 % (32.4-45.2); HEMOGLOBIN 12.1 GM/dL (10.7-15.3); LYMPH % 13.5 % (8-40); MCH 28.4 pg (25.7-33.7); MCHC 32.3 g/dl (32.0-36.0); MEAN PLT VOLUME 9.2 fl (7.5-11.1); MONO % 7.5 % (3.8-10.2); NEUT % 78.8 % (42.8-82.8); PLATELET COUNT 185 K/MM3 (134-434); RBC 4.26 M/mm3 (3.60-5.2); RDW 14.7 % (11.6-15.6); WHITE BLOOD COUNT 5.1 K/mm3 (4.0-10.0)
[2020-04-14 20:44] LABS: INR 1.09 (0.83-1.09); PROTHROMBIN TIME (PATIENT) 13.2 SEC (9.7-13.0)
[2020-04-14 20:46] LABS: ACTIVATED PTT 32.6 SECONDS (25.2-36.5)
[2020-04-14 21:01] LABS: POTASSIUM 3.5 mmol/L (3.5-5.1)
[2020-04-14] MEDS ORDERED: ACETAMINOPHEN INJECTION 100 ML IVPB ONE (21:02)
[2020-04-14] MEDS ORDERED: METOCLOPRAMIDE HCL INJECTION 10 MG/2 ML VIAL ONE (21:02)
[2020-04-14 21:03] LABS: ALBUMIN 3.3 g/dl (3.4-5.0); BLOOD UREA NITROGEN 23.7 mg/dL (7-18); CALCIUM 8.6 mg/dL (8.5-10.1); MAGNESIUM 2.1 mg/dL (1.8-2.4)
[2020-04-14 21:07] LABS: CREATININE 1.4 mg/dL (0.55-1.3)
[2020-04-14 21:08] LABS: BILIRUBIN,TOTAL 0.4 mg/dL (0.2-1); TOT PROT 7.5 g/dl (6.4-8.2)
[2020-04-14 22:24] LABS: URINE APPEARANCE CLEAR; URINE BILIRUBIN NEGATIVE (NEGATIVE); URINE COLOR YELLOW; URINE GLUCOSE (UA) NEGATIVE (NEGATIVE); URINE KETONE NEGATIVE (NEGATIVE); URINE LEUK ESTERASE NEGATIVE (NEGATIVE); URINE NITRITE NEGATIVE (NEGATIVE); URINE PROTEIN NEGATIVE (NEGATIVE); URINE UROBILINOGEN 0.2 mg/dL (0.2-1.0)
[2020-04-15] MEDS ORDERED: ACETAMINOPHEN 325 MG TABLET (FP) PO PRN ×2 (00:36→21:46)
[2020-04-15] MEDS: ELECTROLYTE-148 SOLN 1,000 ML IV SCH ×3 (02:19→22:05)
[2020-04-15] MEDS ORDERED: ASCORBIC ACID 500 MG TABLET (FP) PO SCH (10:00)
[2020-04-15] MEDS ORDERED: APIXABAN 5 MG TABLET PO SCH (10:00)
[2020-04-15] MEDS ORDERED: APIXABAN 5 MG TABLET ONE (10:34)
[2020-04-15] MEDS ORDERED: ASCORBIC ACID 500 MG TABLET (FP) ONE (10:34)
[2020-04-15 10:53] LABS: BASO % 0.2 % (0-2.0); HEMATOCRIT 39.2 % (32.4-45.2); HEMOGLOBIN 12.7 GM/dL (10.7-15.3); LYMPH % 17.9 % (8-40); MCH 28.3 pg (25.7-33.7); MCHC 32.3 g/dl (32.0-36.0); MEAN CELL VOLUME 87.7 fl (80-96); MEAN PLT VOLUME 8.6 fl (7.5-11.1); MONO % 10.5 % (3.8-10.2); NEUT % 71.4 % (42.8-82.8); PLATELET COUNT 193 K/MM3 (134-434); RBC 4.47 M/mm3 (3.60-5.2); RDW 14.2 % (11.6-15.6); WHITE BLOOD COUNT 5.6 K/mm3 (4.0-10.0)
[2020-04-15 11:00] LABS: INR 1.02 (0.83-1.09); PROTHROMBIN TIME (PATIENT) 12.5 SEC (9.7-13.0)
[2020-04-15 11:03] LABS: ACTIVATED PTT 34.3 SECONDS (25.2-36.5)
[2020-04-15 11:20] LABS: POTASSIUM 3.8 mmol/L (3.5-5.1)
[2020-04-15 11:22] LABS: CALCIUM 8.8 mg/dL (8.5-10.1)
[2020-04-15 11:23] LABS: ALBUMIN 3.2 g/dl (3.4-5.0); BLOOD UREA NITROGEN 19.3 mg/dL (7-18)
[2020-04-15 11:26] LABS: CREATININE 1.2 mg/dL (0.55-1.3)
[2020-04-15 11:28] LABS: BILIRUBIN,TOTAL 0.3 mg/dL (0.2-1); TOT PROT 7.5 g/dl (6.4-8.2)
[2020-04-15] MEDS ORDERED: REMDESIVIR 200 MG in SODIUM CHLORIDE 210 ML IVPB ONE (16:34)
[2020-04-15] MEDS ORDERED: predniSONE 20 MG TABLET (UD) PO SCH (22:00)
[2020-04-15] MEDS ORDERED: NEBIVOLOL 2.5 MG TABLET (FP) PO SCH (22:00)
[2020-04-15] MEDS: NEBIVOLOL 2.5 MG TABLET (FP) PO SCH (22:05)
[2020-04-15] MEDS: predniSONE 20 MG TABLET (UD) PO SCH (22:05)
[2020-04-15 22:49] LABS: INR 1.23 (0.83-1.09)
[2020-04-15 22:51] LABS: ACTIVATED PTT 36.3 SECONDS (25.2-36.5)
[2020-04-16] MEDS: predniSONE 20 MG TABLET (UD) PO SCH ×3 (05:02→21:56)
[2020-04-16] MEDS ORDERED: ACETAMINOPHEN 1000 MG/100 ML VIAL (NON FORMULARY) IVPB ONE (05:12)
[2020-04-16] MEDS: LEVOTHYROXINE NA 88 MCG TABLET (FP) PO SCH (06:21)
[2020-04-16] MEDS ORDERED: LEVOTHYROXINE NA 88 MCG TABLET (FP) PO SCH (07:00)
[2020-04-16 07:47] LABS: HEMATOCRIT 36.1 % (32.4-45.2); MCH 28.6 pg (25.7-33.7); MCHC 33.2 g/dl (32.0-36.0); MEAN CELL VOLUME 86.3 fl (80-96); MEAN PLT VOLUME 8.9 fl (7.5-11.1); PLATELET COUNT 187 K/MM3 (134-434); RBC 4.18 M/mm3 (3.60-5.2); RDW 14.5 % (11.6-15.6); WHITE BLOOD COUNT 5.2 K/mm3 (4.0-10.0)
[2020-04-16 07:53] LABS: POTASSIUM 3.7 mmol/L (3.5-5.1)
[2020-04-16 08:33] LABS: ALBUMIN 2.8 g/dl (3.4-5.0); BLOOD UREA NITROGEN 17.9 mg/dL (7-18); CALCIUM 8.1 mg/dL (8.5-10.1)
[2020-04-16 08:34] LABS: MAGNESIUM 1.8 mg/dL (1.8-2.4)
[2020-04-16 08:37] LABS: BILIRUBIN,TOTAL 0.3 mg/dL (0.2-1); TOT PROT 6.4 g/dl (6.4-8.2)
[2020-04-16] MEDS: PANTOPRAZOLE 20 MG TABLET PO SCH (09:48)
[2020-04-16] MEDS: FOLIC ACID 1 MG TABLET (FP) PO SCH (09:48)
[2020-04-16] MEDS: LISINOPRIL 10 MG TABLET PO SCH (09:48)
[2020-04-16] MEDS: ASCORBIC ACID 500 MG TABLET (FP) PO SCH (09:48)
[2020-04-16] MEDS: HYDROCHLOROTHIAZIDE 25 MG TABLET (FP) PO SCH (09:48)
[2020-04-16] MEDS: NEBIVOLOL 2.5 MG TABLET (FP) PO SCH ×2 (09:49→21:56)
[2020-04-16] MEDS: amLODIPine BESYLATE 5 MG TABLET (FP) PO SCH (09:49)
[2020-04-16] MEDS ORDERED: HYDROCHLOROTHIAZIDE 25 MG TABLET (FP) PO SCH (10:00)
[2020-04-16] MEDS ORDERED: PANTOPRAZOLE 20 MG TABLET PO SCH (10:00)
[2020-04-16] MEDS ORDERED: amLODIPine BESYLATE 10 MG TABLET (FP) PO SCH (10:00)
[2020-04-16] MEDS ORDERED: LISINOPRIL 10 MG TABLET PO SCH (10:00)
[2020-04-16] MEDS ORDERED: FOLIC ACID 1 MG TABLET (FP) PO SCH (10:00)
[2020-04-16] MEDS ORDERED: PATIENT'S OWN MEDICATION (NON-FORMULARY) (Esomeprazole Magnesium [Nexium 24hr] 20 MG Capsu PO SCH (10:00)
[2020-04-16 11:23] LABS: ERYTHROCYTE SEDIMENTATION RATE 70 mm/hr (0-30)
[2020-04-16] MEDS: REMDESIVIR 100 MG in SODIUM CHLORIDE 230 ML IVPB SCH (16:18)
[2020-04-16] MEDS ORDERED: REMDESIVIR 100 MG in SODIUM CHLORIDE 230 ML IVPB SCH (17:00)
[2020-04-16] MEDS ORDERED: PT OWN MED DRAWER 7, Y5N ONE (20:54)
[2020-04-16] MEDS: ELECTROLYTE-148 SOLN 1,000 ML IV SCH (21:55)
[2020-04-17] MEDS: predniSONE 20 MG TABLET (UD) PO SCH ×3 (06:02→22:51)
[2020-04-17] MEDS: LEVOTHYROXINE NA 88 MCG TABLET (FP) PO SCH (06:02)
[2020-04-17] MEDS: ELECTROLYTE-148 SOLN 1,000 ML IV SCH ×2 (06:05→22:51)
[2020-04-17 07:08] LABS: BASO % 0.1 % (0-2.0); HEMATOCRIT 38.3 % (32.4-45.2); HEMOGLOBIN 12.6 GM/dL (10.7-15.3); LYMPH % 23.8 % (8-40); MCH 28.7 pg (25.7-33.7); MCHC 32.8 g/dl (32.0-36.0); MEAN CELL VOLUME 87.4 fl (80-96); MEAN PLT VOLUME 9.2 fl (7.5-11.1); MONO % 8.8 % (3.8-10.2); NEUT % 67.3 % (42.8-82.8); PLATELET COUNT 217 K/MM3 (134-434); RBC 4.38 M/mm3 (3.60-5.2); RDW 14.3 % (11.6-15.6); WHITE BLOOD COUNT 4.1 K/mm3 (4.0-10.0)
[2020-04-17 07:25] LABS: POTASSIUM 4.4 mmol/L (3.5-5.1)
[2020-04-17 07:27] LABS: CALCIUM 8.4 mg/dL (8.5-10.1)
[2020-04-17 07:28] LABS: ALBUMIN 2.8 g/dl (3.4-5.0); BLOOD UREA NITROGEN 20.9 mg/dL (7-18)
[2020-04-17 07:31] LABS: CREATININE 1.1 mg/dL (0.55-1.3)
[2020-04-17 07:33] LABS: BILIRUBIN,TOTAL 0.6 mg/dL (0.2-1); TOT PROT 6.4 g/dl (6.4-8.2)
[2020-04-17] MEDS ORDERED: PT OWN MED DRAWER 7, Y5N ONE ×3 (09:52→20:57)
[2020-04-17] MEDS: LISINOPRIL 10 MG TABLET PO SCH (09:54)
[2020-04-17] MEDS: FOLIC ACID 1 MG TABLET (FP) PO SCH (09:54)
[2020-04-17] MEDS: ASCORBIC ACID 500 MG TABLET (FP) PO SCH (09:54)
[2020-04-17] MEDS: PANTOPRAZOLE 20 MG TABLET PO SCH (09:54)
[2020-04-17] MEDS: amLODIPine BESYLATE 5 MG TABLET (FP) PO SCH (09:54)
[2020-04-17] MEDS: HYDROCHLOROTHIAZIDE 25 MG TABLET (FP) PO SCH (09:55)
[2020-04-17] MEDS: NEBIVOLOL 2.5 MG TABLET (FP) PO SCH ×2 (09:55→22:51)
[2020-04-17] MEDS: TETRAHYDROZOLINE HCL EYE DROPS OS SCH ×3 (14:59→22:51)
[2020-04-17] MEDS: REMDESIVIR 100 MG in SODIUM CHLORIDE 230 ML IVPB SCH (16:34)
[2020-04-17 16:40] LABS: MAGNESIUM 2.2 mg/dL (1.8-2.4)
[2020-04-18] MEDS: LEVOTHYROXINE NA 88 MCG TABLET (FP) PO SCH (06:42)
[2020-04-18 08:29] LABS: BASO % 0.2 % (0-2.0); HEMATOCRIT 40.9 % (32.4-45.2); HEMOGLOBIN 13.2 GM/dL (10.7-15.3); LYMPH % 18.1 % (8-40); MCHC 32.2 g/dl (32.0-36.0); MEAN CELL VOLUME 86.8 fl (80-96); MEAN PLT VOLUME 9.2 fl (7.5-11.1); MONO % 5.1 % (3.8-10.2); NEUT % 76.6 % (42.8-82.8); PLATELET COUNT 268 K/MM3 (134-434); RBC 4.71 M/mm3 (3.60-5.2); RDW 14.7 % (11.6-15.6)
[2020-04-18] MEDS ORDERED: PT OWN MED DRAWER 7, Y5N ONE ×2 (08:36→09:18)
[2020-04-18 08:59] LABS: POTASSIUM 4.3 mmol/L (3.5-5.1)
[2020-04-18 09:13] LABS: ALBUMIN 2.8 g/dl (3.4-5.0); CALCIUM 8.8 mg/dL (8.5-10.1); MAGNESIUM 2.2 mg/dL (1.8-2.4)
[2020-04-18 09:16] LABS: CREATININE 1.1 mg/dL (0.55-1.3)
[2020-04-18 09:17] LABS: BILIRUBIN,TOTAL 0.8 mg/dL (0.2-1)
[2020-04-18 09:18] LABS: TOT PROT 6.5 g/dl (6.4-8.2)
[2020-04-18] MEDS: DEXAMETHASONE SOD PHOSPHATE 4 MG/1 ML VIAL IVPUSH SCH (09:22)
[2020-04-18] MEDS: HYDROCHLOROTHIAZIDE 25 MG TABLET (FP) PO SCH (09:23)
[2020-04-18] MEDS: FOLIC ACID 1 MG TABLET (FP) PO SCH (09:23)
[2020-04-18] MEDS: ASCORBIC ACID 500 MG TABLET (FP) PO SCH (09:23)
[2020-04-18] MEDS: amLODIPine BESYLATE 5 MG TABLET (FP) PO SCH (09:24)
[2020-04-18] MEDS: LISINOPRIL 10 MG TABLET PO SCH (09:24)
[2020-04-18] MEDS: NEBIVOLOL 2.5 MG TABLET (FP) PO SCH ×2 (09:24→21:50)
[2020-04-18] MEDS: PANTOPRAZOLE 20 MG TABLET PO SCH (09:24)
[2020-04-18] MEDS: TETRAHYDROZOLINE HCL EYE DROPS OS SCH ×4 (09:34→21:48)
[2020-04-18] MEDS ORDERED: ENOXAPARIN NA (PORCINE) 40 MG/0.4 ML DISP.SYRIN SQ SCH (13:30)
[2020-04-18] MEDS: REMDESIVIR 100 MG in SODIUM CHLORIDE 230 ML IVPB SCH (16:28)
[2020-04-18] MEDS ORDERED: ACETAMINOPHEN 325 MG TABLET (FP) PO PRN (18:41)
[2020-04-18] MEDS: APIXABAN 5 MG TABLET PO SCH (21:50)
[2020-04-19] MEDS ORDERED: LEVOTHYROXINE NA 88 MCG TABLET (FP) PO SCH (07:00)
[2020-04-19] MEDS ORDERED: ZINC SULFATE 220 MG CAPSULE (FP) PO SCH (10:00)
[2020-04-19] MEDS ORDERED: CHOLECALCIFEROL (VIT D3) 400 UNIT (10 MCG) TABLET PO SCH (10:00)
[2020-04-19] MEDS ORDERED: amLODIPine BESYLATE 5 MG TABLET (FP) PO SCH (10:00)
[2020-04-19] MEDS ORDERED: LISINOPRIL 10 MG TABLET PO SCH (10:00)
[2020-04-19] MEDS ORDERED: FOLIC ACID 1 MG TABLET (FP) PO SCH (10:00)
[2020-04-19] MEDS ORDERED: ASCORBIC ACID 500 MG TABLET (FP) PO SCH (10:00)
[2020-04-19] MEDS ORDERED: HYDROCHLOROTHIAZIDE 25 MG TABLET (FP) PO SCH (10:00)
[2020-04-19] MEDS ORDERED: PANTOPRAZOLE 20 MG TABLET PO SCH (10:00)
[2020-04-19] MEDS: NEBIVOLOL 2.5 MG TABLET (FP) PO SCH (10:55)
[2020-04-19] MEDS: APIXABAN 5 MG TABLET PO SCH (10:56)
[2020-04-19] MEDS: DEXAMETHASONE SOD PHOSPHATE 4 MG/1 ML VIAL IVPUSH SCH (10:57)
[2020-04-19] MEDS: TETRAHYDROZOLINE HCL EYE DROPS OS SCH ×2 (10:59→13:19)
[2020-04-19 11:17] VITALS: BP 134/54; PULSE 62; TEMP 98.8
[2020-04-19 11:49] LABS: BASO % 0.2 % (0-2.0); MCH 28.3 pg (25.7-33.7); MCHC 32.5 g/dl (32.0-36.0); MEAN CELL VOLUME 87.3 fl (80-96); MEAN PLT VOLUME 9.2 fl (7.5-11.1); MONO % 10.8 % (3.8-10.2); PLATELET COUNT 286 K/MM3 (134-434); RBC 4.59 M/mm3 (3.60-5.2); RDW 14.4 % (11.6-15.6); WHITE BLOOD COUNT 6.1 K/mm3 (4.0-10.0)
[2020-04-19] MEDS ORDERED: REMDESIVIR 100 MG in SODIUM CHLORIDE 230 ML IVPB SCH ×2 (12:00→17:00)
[2020-04-19 12:07] LABS: POTASSIUM 4.3 mmol/L (3.5-5.1)
[2020-04-19 12:10] LABS: CALCIUM 8.7 mg/dL (8.5-10.1)
[2020-04-19 12:11] LABS: ALBUMIN 2.7 g/dl (3.4-5.0); BLOOD UREA NITROGEN 25.2 mg/dL (7-18)
[2020-04-19 12:16] LABS: BILIRUBIN,TOTAL 0.8 mg/dL (0.2-1); TOT PROT 6.6 g/dl (6.4-8.2)
[2020-04-19 13:33] LABS: MAGNESIUM 2.1 mg/dL (1.8-2.4)
== END 2020-04-19 16:45 | disposition home or self-care (01) | DRG 177 ==
LOC: JER 18:11 → OBSVTOIN 22:16 → JERBED 22:16 → J5WEST-2 04-15 11:38 → J4S 04-15 21:35 → J5WEST-2 04-18 18:07
PROVIDERS: ADMIT Hospitalist; ATTEND Nurse Practitioner Acute Care
PROC: XW033E5 Introduction of Remdesivir Anti-infective into Peripheral Vein, Percutaneous Approach, New Technology Group 5 (ICD-10-PCS; principal; 2020-04-15)
DX: U07.1 COVID-19 (principal); J12.82 Pneumonia due to coronavirus disease 2019; I74.2 Embolism and thrombosis of arteries of the upper extremities; I24.8 Other forms of acute ischemic heart disease; N17.9 Acute kidney failure, unspecified; E03.9 Hypothyroidism, unspecified; I10 Essential (primary) hypertension; K21.9 Gastro-esophageal reflux disease without esophagitis; J45.909 Unspecified asthma, uncomplicated; R55 Syncope and collapse; R79.89 Other specified abnormal findings of blood chemistry; R77.8 Other specified abnormalities of plasma proteins; M31.6 Other giant cell arteritis; I12.9 Hypertensive chronic kidney disease with stage 1 through stage 4 chronic kidney disease, or unspecified chronic kidney disease; N18.9 Chronic kidney disease, unspecified; R09.02 Hypoxemia; S00.83XA Contusion of other part of head, initial encounter; W18.39XA Other fall on same level, initial encounter; Y92.231 Patient bathroom in hospital as the place of occurrence of the external cause
CPT/HCPCS: 36415; 70450-TC; 71045-TC-FY; 71250-TC; 72125-TC; 73564-TC-RT-FY; 73590-TC-RT-FY; 80053; 81003; 82550; 82728; 83615; 83735; 84100; 84439; 84443; 84484; 85025; 85027; 85379; 85610; 85651; 85730; 86140; 86769; 87426; 93005; 93010; 94761; 97116-GP; 97161-GP; 99285-25; C9399; J0131

== ENCOUNTER 2020-05-07 16:17 | Emergency (ER) | payer OTHER ==
[2020-05-07 16:28] VITALS: TEMP 97.9; BMI 30.9
[2020-05-07 18:30] LABS: BASO % 0.6 % (0-2.0); EOS % 1.9 % (0-4.5); HEMATOCRIT 31.8 % (32.4-45.2); HEMOGLOBIN 10.7 GM/dL (10.7-15.3); MCH 29.3 pg (25.7-33.7); MCHC 33.7 g/dl (32.0-36.0); MEAN CELL VOLUME 86.9 fl (80-96); MEAN PLT VOLUME 8.1 fl (7.5-11.1); MONO % 6.3 % (3.8-10.2); NEUT % 79.2 % (42.8-82.8); PLATELET COUNT 154 K/MM3 (134-434); RBC 3.66 M/mm3 (3.60-5.2); RDW 15.7 % (11.6-15.6); WHITE BLOOD COUNT 8.2 K/mm3 (4.0-10.0)
[2020-05-07 18:46] LABS: POTASSIUM 3.8 mmol/L (3.5-5.1)
[2020-05-07 18:48] LABS: ALBUMIN 2.7 g/dl (3.4-5.0); BLOOD UREA NITROGEN 33.1 mg/dL (7-18); CALCIUM 8.5 mg/dL (8.5-10.1)
[2020-05-07 18:51] LABS: CREATININE 1.6 mg/dL (0.55-1.3)
[2020-05-07 18:53] LABS: BILIRUBIN,TOTAL 0.6 mg/dL (0.2-1); TOT PROT 6.8 g/dl (6.4-8.2)
[2020-05-07 22:04] VITALS: BP 139/86; PULSE 78
== END 2020-05-07 22:21 | disposition left against medical advice (07) ==
LOC: JER 16:17
DX: R79.89 Other specified abnormal findings of blood chemistry (principal); M54.6 Pain in thoracic spine
CPT/HCPCS: 36415; 71250-TC; 80053; 83880; 84484; 85025; 87040; 87086; 87186; 93970-TC; 99285-25

== ENCOUNTER 2022-08-16 18:10 | Emergency (ER) | payer OTHER ==
[2022-08-16 18:34] VITALS: RESP 16; BMI 28.3
[2022-08-16] MEDS ORDERED: KETOROLAC TROMETHAMINE 15 MG/ML VIAL IVPUSH ONE (19:44)
[2022-08-16 20:20] LABS: ACTIVATED PTT 24.3 SECONDS (25.2-36.5); INR 1.02 (0.83-1.09); PROTHROMBIN TIME (PATIENT) 11.8 SEC (9.7-13.0)
[2022-08-16 20:26] LABS: POTASSIUM 4.8 mmol/L (3.5-5.1)
[2022-08-16 20:28] LABS: CALCIUM 9.4 mg/dL (8.5-10.1)
[2022-08-16 20:29] LABS: ALBUMIN 3.4 g/dl (3.4-5.0); BLOOD UREA NITROGEN 14.3 mg/dL (7-18)
[2022-08-16 20:32] LABS: CREATININE 1.2 mg/dL (0.55-1.3)
[2022-08-16 20:33] LABS: BILIRUBIN,TOTAL 0.4 mg/dL (0.2-1); TOT PROT 7.4 g/dl (6.4-8.2)
[2022-08-16] MEDS ORDERED: KETOROLAC TROMETHAMINE 15 MG/ML VIAL ONE (21:16)
[2022-08-16 22:06] LABS: EOS % 2.8 % (0-4.5); HEMATOCRIT 32.7 % (32.4-45.2); HEMOGLOBIN 10.6 GM/dL (10.7-15.3); LYMPH % 27.9 % (8-40); MCH 26.4 pg (25.7-33.7); MCHC 32.5 g/dl (32.0-36.0); MEAN CELL VOLUME 81.1 fl (80-96); MEAN PLT VOLUME 10.4 fl (7.5-11.1); NEUT % 58.3 % (42.8-82.8); PLATELET COUNT 250 10^3/uL (134-434); RBC 4.03 M/mm3 (3.60-5.2); WHITE BLOOD COUNT 6.2 K/mm3 (4.0-10.0)
[2022-08-16 22:08] VITALS: BP 194/86; PULSE 86; TEMP 98.2
[2022-08-16] MEDS ORDERED: ACETAMINOPHEN 500 MG TABLET (FP) PO ONE (23:28)
[2022-08-16] MEDS ORDERED: morphine SULFATE 4 MG/ML VIAL IVPUSH ONE (23:35)
[2022-08-16] MEDS ORDERED: ACETAMINOPHEN 325 MG TABLET (FP) ONE (23:36)
[2022-08-16] MEDS ORDERED: morphine SULFATE 4 MG/ML VIAL ONE (23:49)
== END 2022-08-17 00:22 | disposition home or self-care (01) ==
LOC: JER 18:10
PROC: 3E0333Z Introduction of Anti-inflammatory into Peripheral Vein, Percutaneous Approach (ICD-10-PCS; principal; 2022-08-16)
PROC: 3E033GC Introduction of Other Therapeutic Substance into Peripheral Vein, Percutaneous Approach (ICD-10-PCS; 2022-08-16)
DX: M79.662 Pain in left lower leg (principal); M79.661 Pain in right lower leg; M54.42 Lumbago with sciatica, left side; R20.2 Paresthesia of skin
CPT/HCPCS: 36415; 80053; 85025; 85610; 85730; 93970-TC; 99284-25

== ENCOUNTER 2024-03-10 21:36 | Inpatient (IN) | payer OTHER ==
[2024-03-10] MEDS ORDERED: NIFEdipine 10 MG CAPSULE (FP) PO ONE (21:59)
[2024-03-10] MEDS ORDERED: ATENOLOL 50 MG TABLET (FP) ONE (22:30)
[2024-03-10] MEDS: ATENOLOL 50 MG TABLET (FP) PO ONE (22:57)
[2024-03-10 23:29] LABS: BASO % 0.7 % (0-2.0); EOS % 1.5 % (0-4.5); HEMATOCRIT 29.4 % (32.4-45.2); HEMOGLOBIN 9.5 GM/dL (10.7-15.3); LYMPH % 30.4 % (8-40); MCH 26.8 pg (25.7-33.7); MCHC 32.3 g/dl (32.0-36.0); MEAN PLT VOLUME 9.2 fl (7.5-11.1); MONO % 15.6 % (3.8-10.2); NEUT % 51.8 % (42.8-82.8); PLATELET COUNT 266 10^3/uL (134-434); RBC 3.54 M/mm3 (3.60-5.2); RDW 14.9 % (11.6-15.6); WHITE BLOOD COUNT 4.9 K/mm3 (4.0-10.0)
[2024-03-10 23:43] LABS: INR 1.01 (0.83-1.09); PROTHROMBIN TIME (PATIENT) 11.6 SEC (9.7-13.0)
[2024-03-10 23:46] LABS: ACTIVATED PTT 33.3 SECONDS (25.2-36.5)
[2024-03-10 23:46] LABS: URINE APPEARANCE CLEAR; URINE BILIRUBIN NEGATIVE (NEGATIVE); URINE COLOR YELLOW; URINE GLUCOSE (UA) NEGATIVE (NEGATIVE); URINE KETONE NEGATIVE (NEGATIVE); URINE LEUK ESTERASE 2+ (NEGATIVE); URINE NITRITE NEGATIVE (NEGATIVE); URINE PROTEIN NEGATIVE (NEGATIVE); URINE UROBILINOGEN 0.2 mg/dL (0.2-1.0)
[2024-03-10 23:49] LABS: POTASSIUM 4.1 mmol/L (3.5-5.1)
[2024-03-10 23:52] LABS: ALBUMIN 3.2 g/dl (3.4-5.0); BLOOD UREA NITROGEN 17.2 mg/dL (7-18); CALCIUM 9.1 mg/dL (8.5-10.1); MAGNESIUM 1.9 mg/dL (1.8-2.4)
[2024-03-10 23:53] LABS: EPI CELLS 7.8 /uL (0-25.1); HYALINE CASTS 0.68 /uL (0-3.1); URINE BACTERIA 36.8 /uL (0-1359); URINE RBC 5.7 /uL (0-23.9); URINE WBC 63.2 /uL (0-25.8)
[2024-03-10 23:55] LABS: CREATININE 1.2 mg/dL (0.55-1.3); PHOSPHOROUS 3.4 mg/dL (2.5-4.9)
[2024-03-10 23:56] LABS: BILIRUBIN,TOTAL 0.4 mg/dL (0.2-1); TOT PROT 6.9 g/dl (6.4-8.2)
[2024-03-11] MEDS ORDERED: FAMOTIDINE 20 MG/50 ML IVPB 20 MG/50 ML MG IVPB ONE (01:05)
[2024-03-11] MEDS ORDERED: LABETALOL HCL 20 MG/4 ML VIAL ONE (01:05)
[2024-03-11] MEDS ORDERED: MAG HYDROX/AL HYDROX/SIMETH 30 ML UNIT-DOSE CUP ONE (01:05)
[2024-03-11] MEDS: MAG HYDROX/AL HYDROX/SIMETH 30 ML UNIT-DOSE CUP PO ONE (01:16)
[2024-03-11] MEDS: FAMOTIDINE 20 MG/50 ML IVPB 20 MG/50 ML MG IVPB ONE (01:16)
[2024-03-11] MEDS: LABETALOL HCL 20 MG/4 ML VIAL IVPUSH ONE (01:16)
[2024-03-11] MEDS ORDERED: SUCRALFATE 1 GM TABLET (FP) ONE (03:11)
[2024-03-11] MEDS: SUCRALFATE 1 GM TABLET (FP) PO ONE (03:36)
[2024-03-11] MEDS: ATORVASTATIN CA 80 MG TABLET (FP) PO ONE (08:15)
[2024-03-11] MEDS ORDERED: ATENOLOL 100 MG PO SCH (10:00)
[2024-03-11] MEDS: CHOLECALCIFEROL (VIT D3) 400 UNIT (10 MCG) TABLET PO SCH (11:00)
[2024-03-11] MEDS: NIFEdipine E.R. 30 MG TABLET PO SCH (11:00)
[2024-03-11] MEDS: PANTOPRAZOLE 20 MG TABLET PO SCH (11:00)
[2024-03-11] MEDS: LEFLUNOMIDE 10 MG TABLET PO SCH (11:00)
[2024-03-11] MEDS ORDERED: ATORVASTATIN CA 80 MG TABLET (FP) ONE (12:34)
[2024-03-11] MEDS ORDERED: NIFEdipine E.R. 30 MG TABLET PO ONE (12:34)
[2024-03-11] MEDS ORDERED: CHOLECALCIFEROL (VIT D3) 1,000 UNIT (25 MCG) TABLET ONE (12:34)
[2024-03-11] MEDS ORDERED: PANTOPRAZOLE 20 MG TABLET PO ONE (12:34)
[2024-03-11] MEDS: SUCRALFATE 1 GM/10 ML UNIT DOSE CUPS PO SCH (13:16)
[2024-03-11] MEDS ORDERED: ATENOLOL 50 MG TABLET (FP) ONE (17:03)
[2024-03-11] MEDS: ATENOLOL 50 MG TABLET (FP) PO SCH (17:09)
[2024-03-12] MEDS: LEVOTHYROXINE NA 75 MCG TABLET (FP) PO SCH (06:55)
[2024-03-12 08:03] LABS: BASO % 0.9 % (0-2.0); EOS % 2.7 % (0-4.5); HEMATOCRIT 31.2 % (32.4-45.2); HEMOGLOBIN 9.7 GM/dL (10.7-15.3); LYMPH % 26.7 % (8-40); MCH 26.2 pg (25.7-33.7); MEAN CELL VOLUME 84.7 fl (80-96); MEAN PLT VOLUME 9.5 fl (7.5-11.1); MONO % 14.1 % (3.8-10.2); NEUT % 55.6 % (42.8-82.8); PLATELET COUNT 266 10^3/uL (134-434); RBC 3.68 M/mm3 (3.60-5.2); RDW 14.8 % (11.6-15.6)
[2024-03-12 08:18] LABS: POTASSIUM 4.3 mmol/L (3.5-5.1)
[2024-03-12 08:25] LABS: ALBUMIN 3.3 g/dl (3.4-5.0)
[2024-03-12 08:26] LABS: BLOOD UREA NITROGEN 19.7 mg/dL (7-18)
[2024-03-12 08:27] LABS: BILIRUBIN,TOTAL 0.4 mg/dL (0.2-1); CALCIUM 9.2 mg/dL (8.5-10.1); TOT PROT 6.9 g/dl (6.4-8.2)
[2024-03-12 08:28] LABS: MAGNESIUM 2.1 mg/dL (1.8-2.4)
[2024-03-12 08:29] LABS: CREATININE 1.2 mg/dL (0.55-1.3); PHOSPHOROUS 3.9 mg/dL (2.5-4.9)
[2024-03-12] MEDS: ENOXAPARIN NA (PORCINE) 40 MG/0.4 ML DISP.SYRIN SQ SCH (09:58)
[2024-03-12] MEDS: MAGNESIUM CITRATE 300 ML BOTTLE PO ONE (10:09)
[2024-03-12 15:12] VITALS: BMI 25.0
[2024-03-12] MEDS: CHLORTHALIDONE 25 MG TABLET PO SCH (17:26)
[2024-03-13 07:01] VITALS: PULSE 59
[2024-03-13 07:44] LABS: BASO % 0.9 % (0-2.0); LYMPH % 33.9 % (8-40); MCH 26.8 pg (25.7-33.7); MCHC 32.3 g/dl (32.0-36.0); MEAN CELL VOLUME 82.9 fl (80-96); MEAN PLT VOLUME 9.5 fl (7.5-11.1); MONO % 16.2 % (3.8-10.2); PLATELET COUNT 253 10^3/uL (134-434); RBC 3.74 M/mm3 (3.60-5.2); RDW 15.1 % (11.6-15.6); WHITE BLOOD COUNT 3.7 K/mm3 (4.0-10.0)
[2024-03-13 08:02] LABS: POTASSIUM 4.3 mmol/L (3.5-5.1)
[2024-03-13 08:03] LABS: CALCIUM 9.3 mg/dL (8.5-10.1)
[2024-03-13 08:04] LABS: ALBUMIN 3.3 g/dl (3.4-5.0)
[2024-03-13 08:06] LABS: BLOOD UREA NITROGEN 19.6 mg/dL (7-18)
[2024-03-13 08:07] LABS: CREATININE 1.2 mg/dL (0.55-1.3)
[2024-03-13 08:11] LABS: BILIRUBIN,TOTAL 0.4 mg/dL (0.2-1)
[2024-03-13] MEDS: POLYETHYLENE GLYCOL (HEALTHYLAX) 3350 17 GM PACKET PO SCH (09:37)
[2024-03-13 11:38] VITALS: BP 170/64; RESP 17; TEMP 98.6
== END 2024-03-13 13:13 | disposition home or self-care (01) | DRG 282 ==
LOC: JER 21:36 → JERBED 03-11 03:16 → J4W 03-11 17:33
PROVIDERS: ADMIT Internal Medicine; ATTEND Registered Nurse
DX: I16.1 Hypertensive emergency (principal); I21.A1 Myocardial infarction type 2; K21.9 Gastro-esophageal reflux disease without esophagitis; E03.9 Hypothyroidism, unspecified; J45.909 Unspecified asthma, uncomplicated; M06.9 Rheumatoid arthritis, unspecified; K29.70 Gastritis, unspecified, without bleeding; D64.9 Anemia, unspecified; K59.00 Constipation, unspecified
CPT/HCPCS: 0241U-QW; 36415; 70450-TC; 71045-TC-FY; 71250-TC; 74176-TC; 80053; 81003; 82550; 83690; 83735; 83880; 84100; 84484; 85025; 85610; 85730; 87077; 87086; 93005; 93010; 93306-TC; 93308; 99285-25